=== PATIENT | female | born 1945 | race Caucasian/White ===

== ENCOUNTER 2017-01-16 14:29 | Emergency (ER) | payer MEDICARE, BC ==
--- NOTE | 2017-01-16 14:55 | ER Document Report ---
ED Medical Screen (RME) - General Chief Complaint: High Blood Pressure Stated Complaint: BLOOD PRESSURE CONCERNS Mode of Arrival: Ambulatory Information source: Patient TRAVEL OUTSIDE OF THE [place] IN LAST 30 DAYS: No - HPI Onset: Other - 2 WEEKS? Onset/Duration: Gradual Quality of pain: Achy, Dull Associated Symptoms: Headache, Sweating. denies: Abdominal pain, Chills, Fever , Leg swelling, Nausea, Shortness of breath Exacerbated by: Denies Relieved by: Denies Similar symptoms previously: No Recently seen / treated by doctor: Yes - DR. CLAROS, REFERED TO E.D. - Related Data Smoking: Non-smoker Frequency of alcohol use: None Drug Abuse: None Allergies/Adverse Reactions: No Known Allergies Allergy (Verified 01/16/17 14:53) Past Medical History - General Information source: Patient - Social History Cigarette use (# per day): No Lives with: Spouse/Significant other Family history: Hypertension - Past Medical History Cardiac Medical History: Reports: Hx Hypertension Pulmonary Medical History: Reports: None EENT Medical History: Reports: None Neurological Medical History: Reports: None Endocrine Medical History: Reports: None Renal/ Medical History: Denies: Hx Peritoneal Dialysis Malignancy Medical History: Reports: None GI Medical History: Reports: None Musculoskeltal Medical History: Reports None Psychiatric Medical History: Reports: None Review of Systems - Review of Systems Constitutional: No symptoms reported EENT: No symptoms reported Cardiovascular: No symptoms reported Respiratory: No symptoms reported Neurological/Psychological: See HPI Physical Exam - Vital signs Vitals: Temp Pulse Resp BP Pulse Ox 97.9 F 67 16 160/87 H 95 01/16/17 14:35 01/16/17 14:35 01/16/17 14:35 01/16/17 14:35 01/16/17 14:35 Interpretation: Hypertensive. No: Tachycardic, Hypoxic, Tachypneic - HEENT Head: Normocephalic Eyes: Normal Ears: Normal Nasal: Normal Mouth/Lips: Normal Mucous membranes: Normal - Respiratory Respiratory status: No respiratory distress - Extremities General upper extremity: Normal inspection General lower extremity: Normal inspection. No: Tender, Edema - Skin Skin Temperature: Warm Skin Moisture: Dry Skin Color: Normal Skin Turgor: Elastic Course - Vital Signs Vital signs: Temp Pulse Resp BP Pulse Ox 97.9 F 67 16 160/87 H 95 01/16/17 14:35 01/16/17 14:35 01/16/17 14:35 01/16/17 14:35 01/16/17 14:35
[2017-01-16 16:22] VITALS: BP 161/97
--- NOTE | 2017-01-16 16:30 | ER Document Report ---
ED General - General Chief Complaint: High Blood Pressure Stated Complaint: BLOOD PRESSURE CONCERNS Time seen by provider: 16:00 Mode of Arrival: Ambulatory Information source: Patient Notes: 71-year-old female noted a systolic blood pressure of 2:15 when she checked it at home this morning. She contacted her physician and says she was instructed to come to emergency department to be checked. Patient has a long history of high blood pressure and records it mostly on a daily basis the number she provides with her show systolics ranging from proximal 160-210. The patient was seen at Dr. Claros's office yesterday and had her lisinopril increased to 20 mg twice a day from once a day and her Carvedilol all 3.125 mg increased from 1 twice a day to 2 twice a day. Patient is also on Lasix. Patient says she also has an ultrasound of her kidneys ordered for next week that Dr. Claros will follow up with. The patient denies fever, chills, nausea, vomiting, shortness breath, chest pain, abdominal pain, back pain, pain numbness weakness to extremities, or swelling to extremities. She reports feeling in her normal state of health recently. Physical Exam: General: Alert, appears well. HEENT: Normocephalic. Atraumatic. PERRLA. Extraocular movements intact. Discs sharp no papilledema sclerae anicteric Oropharynx clear. Neck: Supple. Non-tender. No JVD no carotid bruits Respiratory: No respiratory distress. Clear and equal breath sounds bilaterally. Cardiovascular: Regular rate and rhythm. PMI not displaced Abdominal: Normal Inspection. Soft, non-tender. No distension. Normal Bowel Sounds. Back: Non-tender. No deformity or step off. Extremities all warm to plus pulses no cyanosis no edema no Homans sign Neurological: Cranial nerves III-XII grossly intact bilaterally. Strength 5/5 throughout. Sensation intact to light touch. Normal cognition. AAOx4. Normal speech. Cerebellar function intact by finger-nose test bilaterally Psychological: Normal affect. Normal Mood. Skin: Warm. Dry. Normal color. TRAVEL OUTSIDE OF THE [place] IN LAST 30 DAYS: No - Related Data Allergies/Adverse Reactions: No Known Allergies Allergy (Verified 01/16/17 14:53) Past Medical History - General Information source: Patient - Social History Smoking Status: Never Smoker Cigarette use (# per day): No Frequency of alcohol use: None Drug Abuse: None Lives with: Spouse/Significant other Family History: Hypertension, Malignancy Patient has suicidal ideation: No Patient has homicidal ideation: No - Past Medical History Cardiac Medical History: Reports: Hx Hypertension Pulmonary Medical History: Reports: None EENT Medical History: Reports: None Neurological Medical History: Reports: None Endocrine Medical History: Reports: None Renal/ Medical History: Denies: Hx Peritoneal Dialysis Malignancy Medical History: Reports: None GI Medical History: Reports: None Musculoskeltal Medical History: Reports None Psychiatric Medical History: Reports: None Past Surgical History: Reports: Hx Orthopedic Surgery - Hip replacement Medical plates and screws in spine Review of Systems - Review of Systems Constitutional: No symptoms reported EENT: denies: Ear pain, Nose pain, Throat pain Cardiovascular: denies: Chest pain, Dyspnea, Syncope Respiratory: denies: Short of breath, Wheezing Gastrointestinal: denies: Abdominal pain, Diarrhea, Nausea, Vomiting Genitourinary: denies: Burning, Hematuria Female Genitourinary: Post menopausal Musculoskeletal: denies: Back pain, Leg swelling Skin: denies: Rash Hematologic/Lymphatic: denies: Swollen glands Neurological/Psychological: denies: Weakness, Numbness Physical Exam - Vital signs Vitals: Temp Pulse Resp BP Pulse Ox 97.9 F 67 16 160/87 H 95 01/16/17 14:35 01/16/17 14:35 01/16/17 14:35 01/16/17 14:35 01/16/17 14:35 Course - Re-evaluation Re-evalutation: 01/16/17 16:30 Recheck of patient's blood pressure is 161/97. She is asymptomatic here. She is recently had a medication adjustment is only on her second dose of the new higher dosage. I long discussion with patient and about concerns over high blood pressure is a long-term risk for heart problems stroke and renal failure and it appears that this is being closely followed by her primary care physician. I further discussed that we want to make adjustments and blood pressure medicines gradually so as not to correct thinks too quickly and that I believed we did not need to make any further changes or pursue any further workup in the emergency department but that continued outpatient follow-up with her physician would be the most reasonable course of action. They're very grateful for this information and agreeable to discharge and outpatient follow- up - Vital Signs Vital signs: Temp Pulse Resp BP Pulse Ox 97.9 F 66 16 161/97 H 98 01/16/17 14:38 01/16/17 16:03 01/16/17 14:38 01/16/17 16:03 01/16/17 16:03 - Diagnostic Test Radiology reviewed: Image reviewed, Reports reviewed Discharge - Discharge Clinical Impression: Hypertension Qualifiers: Hypertension type: essential hypertension Qualified Code(s): I10 - Essential ( primary) hypertension Condition: Stable Disposition: HOME, SELF-CARE Instructions: High Blood Pressure, Requiring Treatment ([facility]) Referrals: JAYY CLAROS MD [Primary Care Provider] - Follow up as needed
--- NOTE | 2017-01-17 08:04 | EKG REPORT ---
SEVERITY:- BORDERLINE ECG - SINUS RHYTHM NONSPECIFIC ST-T CHANGES LATERAL LEADS : Confirmed by: Angelo Eastman MD 17-Jan-2017 08:04:13
== END 2017-01-16 16:53 | disposition home or self-care (01) ==
LOC: ER 14:29
DX: I10 Essential (primary) hypertension (principal)
CPT/HCPCS: 71020; 93005; 93010; 99283

== ENCOUNTER → 2018-01-14 | Outpatient (CLI) | payer MEDICARE, BC ==
--- NOTE | 2018-01-15 12:06 | RADIOLOGY REPORT (SQ) ---
EXAM DESCRIPTION: MRI LT LOWER JOINT WITHOUT COMPLETED DATE/TIME: 01/14/2018 7:49 pm REASON FOR STUDY: OSTEOPHYTE, LEFT ANKLE M25.772 OSTEOPHYTE, LEFT ANKLE COMPARISON: None. TECHNIQUE: Left ankle images acquired and stored on PACS. Multiplanar images include fat sensitive s equences as T1, fluid sensitive sequences as FST2/STIR, cartilage sensitive sequences as FSPD, and gr adient echo sequences. LIMITATIONS: None. FINDINGS: BONE MARROW: No alteration of signal to suggest marrow replacement or edema. No occult fra cture. No large osteophytes. EFFUSIONS: No subtalar or tibiotalar effusions. No loose bodies. OSSEOUS ARTICULATIONS: Normal tibiotalar, subtalar, talonavicular and calcaneocuboid joints. TALAR DOME AND TIBIAL PLAFOND: Normal cartilage. No osteochondral defect. ACHILLES TENDON: A 7 cm long segment of high-grade Achilles tendon tear is present, from the musculot endinous junction down to the calcaneal attachment. There are few intact fibers along the ventral ed ge of the tendon. These changes are best shown on sagittal STIR image 9 and coronal images 22-24. TIBIALIS ANTERIOR TENDON: Intact without edema at the 1st MT attachment. TIBIALIS POSTERIOR TENDON: Normal morphology and no edema at the navicular attachment. No tendon andrade th fluid. FLEXOR HALLUCIS LONGUS AND FLEXOR DIGITORUM TENDONS: Normal morphology and no tendon sheath fluid. No edema of the os trigonum. PERONEUS LONGUS AND BREVIS TENDON: Normal morphology and no tendon sheath fluid. No subluxation. ATFL, CFL, PTFL: Intact. No thickening or signal alteration. No oksana-ligamentous fluid. DELTOID LIGAMENT: Visualized components intact. TARSAL TUNNEL: No masses. No muscle atrophy. SINUS TARSI: No fluid. No reactive marrow edema or erosions. PLANTAR FASCIA: No signal alteration or tear. Small plantar calcaneal spur. ADJACENT SOFT TISSUES: Mild subcutaneous edema at the ankle OTHER: No other significant finding. IMPRESSION: 7 cm long segment of high-grade partial thickness tear of the Achilles tendon with few i ntact fibers along the ventral surface of the tendon TECHNICAL DOCUMENTATION: JOB ID: [id number] [employer]- All Rights Reserved Reading location - IP/workstation name: [email or web address] [email or web address]
== END ==
LOC: RAD 18:23
PROVIDERS: ATTEND Physician Assistant
DX: M25.572 Pain in left ankle and joints of left foot (principal)

== ENCOUNTER → 2018-03-04 | Outpatient (CLI) | payer MEDICARE, BC ==
--- NOTE | 2018-03-05 11:08 | RADIOLOGY REPORT (SQ) ---
EXAM DESCRIPTION: MRI LUMBAR SPINE WITHOUT COMPLETED DATE/TIME: 03/04/2018 5:25 pm REASON FOR STUDY: M54.16 RADICULOPATHY, LUMBAR REGION M54.16 RADICULOPATHY, LUMBAR REGION COMPARISON: None. TECHNIQUE: Sagittal and Axial imaging includes T1, T2, STIR and gradient echo sequences. Coronal T2/ HASTE imaging. LIMITATIONS: None. FINDINGS: VISUALIZED UPPER ABDOMEN: 2.3 x 1.6 cm mass versus hemorrhagic cyst right mid-pole kidney. Renal ultrasound recommended for followup. SEGMENTATION: No transitional anatomy. The lowest well-developed disc space is labeled L5-S1. ALIGNMENT: Anatomic. VERTEBRAE: Intact. BONE MARROW: Mild fatty reactive vertebral body endplate changes at L3-4 and L4-5 DISC SIGNAL: Diffuse decreased T2 weighted intervertebral disc signal at the L3-4, L4-5, and L5-S1 le vels. POSTERIOR ELEMENTS: Old bilateral laminectomy at L4 HARDWARE: Bilateral transpedicular screws and dorsal fixation plates at L4 and L5. CORD AND CONUS: Normal in size and signal intensity. Conus at the L1 level. SOFT TISSUES: No aortic aneurysm seen. No bulky retroperitoneal adenopathy or mass. No paraspinal mas s or fluid. T12-L1: No central or foraminal stenosis L1-L2: Minimal posterior disc bulging is present. Mild bilateral facet and ligament hypertrophy. Brendan rderline central canal stenosis. Mild bile and inferior foraminal narrowing without exit nerve root impingement. L2-L3: Mild posterior diffuse disc bulge, bulky bilateral facet and ligament hypertrophy with calcifi cations/ ossification of the ligamentum flavum. Mild central canal stenosis. Mild bilateral inferio r foraminal narrowing without exiting L2 nerve root impingement. L3-L4: Moderate central canal stenosis results from broad diffuse posterior disc bulge and bony spurr ing with bulky bilateral facet and ligament hypertrophy. Partial effacement of the CSF around the momo mbar nerve roots on axial image 17. There is moderate bilateral foraminal narrowing from bulky facet arthropathy without definite exiting L3 nerve root impingement. L4-L5: Old bilateral L4 laminectomy. No central stenosis. There is mild bilateral foraminal narrowi ng without exiting L4 nerve root impingement. L5-S1: Minimal posterior disc bulging, mild bilateral facet and ligament hypertrophy. No central filomena nosis. Moderate right foraminal narrowing without definite exiting right L5 nerve root impingement. High-grade left L5-S1 foraminal narrowing with flattening of the left L5 nerve root in the neural fo ramen. SACRUM: Visualized upper sacrum intact. OTHER: No other significant findings. IMPRESSION: Bilateral significant neural foraminal narrowing left greater than right at L5-S1. Prior fusion at L4-5 without significant central or foraminal encroachment 2.3 x 1.6 cm mass versus hemorrhagic cyst right mid-pole kidney for which renal ultrasound is recomme nded for follow-up TECHNICAL DOCUMENTATION: JOB ID: [id number] [employer]- All Rights Reserved Reading location - IP/workstation name: [email or web address]
== END ==
LOC: RAD 17:04
PROVIDERS: ATTEND Physician Assistant
DX: M54.16 Radiculopathy, lumbar region (principal)
CPT/HCPCS: 72148

== ENCOUNTER → 2018-03-17 | Outpatient (CLI) | payer MEDICARE, BC ==
--- NOTE | 2018-03-17 15:59 | RADIOLOGY REPORT (SQ) ---
EXAM DESCRIPTION: U/S RETROPERITON LTD COMPLETED DATE/TIME: 03/17/2018 2:57 pm REASON FOR STUDY: CYST OF KIDNEY, ACQUIRED N28.1 CYST OF KIDNEY, ACQUIRED COMPARISON: MR L-spine 03/04/2018 TECHNIQUE: Dynamic and static grayscale images acquired of the kidneys and bladder and recorded on P ACS. Additional selected color Doppler and spectral images recorded. LIMITATIONS: None. FINDINGS: RIGHT KIDNEY: Normal size, 10.9 cm. Normal echogenicity. No solid masses. There is a 2.4 x 2 x 2.3 cm cyst. This does not appear to correspond to the lesion seen on the MRI. No hydro nephrosis. No calcifications. LEFT KIDNEY: Normal size, 10.6 cm. Normal echogenicity. No solid or suspicious masses. No hydr onephrosis. No calcifications. BLADDER: No masses. OTHER FINDINGS: No other significant finding. IMPRESSION: There is a small cyst on the upper pole the right kidney. This does not appear to corre spond to the area of concern from the MRI of 03/04/2018. Consider CT with contrast for further evalua tion if clinically indicated. TECHNICAL DOCUMENTATION: JOB ID: [id number] [employer]- All Rights Reserved Reading location - IP/workstation name: [email or web address]
== END ==
LOC: RAD 14:30
PROVIDERS: ATTEND Physician Assistant
DX: N28.1 Cyst of kidney, acquired (principal)
CPT/HCPCS: 76775

== ENCOUNTER → 2018-04-14 | Outpatient (CLI) | payer MEDICARE, BC ==
--- NOTE | 2018-04-14 14:55 | RADIOLOGY REPORT (SQ) ---
EXAM DESCRIPTION: CT ABD/PELVIS WITH IV ONLY COMPLETED DATE/TIME: 04/14/2018 2:22 pm REASON FOR STUDY: CYST OF KIDNEY (N28.1) N28.1 CYST OF KIDNEY, ACQUIRED COMPARISON: MRI of the lumbar spine dated 03/04/2018 and renal ultrasound dated 03/17/2018 TECHNIQUE: CT scan of the abdomen and pelvis performed using helical scanning technique with dynamic intravenous contrast injection. No oral contrast. Images reviewed with lung, soft tissue, and bone windows. Reconstructed coronal and sagittal MPR images reviewed. Delayed images for evaluation of the urinary system also acquired. All images stored on PACS. All CT scanners at this facility use dose modulation, iterative reconstruction, and/or weight based d osing when appropriate to reduce radiation dose to as low as reasonably achievable (ALARA). [facility]: Dose Right [facility]: CareDose [facility]: Dose Right [facility]: Teradose 4D [facility]: [employer] CONTRAST TYPE AND DOSE: contrast/concentration: Isovue 370.00 mg/ml; Total Contrast Delivered: 100.0 ml; Total Saline Delivered: 72.0 ml RENAL FUNCTION: Creatinine 0.8 RADIATION DOSE: CT Rad equipment meets quality standard of care and radiation dose reduction techniq ues were employed. CTDIvol: 23.3 - 25.4 mGy. DLP: 2613 mGy-cm.. LIMITATIONS: Pelvic images are limited due to artifact related to bilateral hip prostheses. Abdomin al images are limited somewhat due to artifact related to orthopedic hardware in the lumbar spine. FINDINGS: LOWER CHEST: No significant findings. No nodules or infiltrates. LIVER: Normal size. No masses. No dilated ducts. SPLEEN: Normal size. No focal lesions. PANCREAS: No masses. No significant calcifications. No adjacent inflammation or peripancreatic fluid collections. Pancreatic duct not dilated. GALLBLADDER: No identified stones by CT criteria. No inflammatory changes to suggest cholecystitis. ADRENAL GLANDS: No significant masses or asymmetry. RIGHT KIDNEY AND URETER: A small renal mass is identified adjacent to the renal hilum medially measur ing 2.1 x 1.4 cm in diameter which correlates with the findings on the MRI of the lumbar spine. The appearance is suspicious for a renal neoplastic. A dedicated MRI of the abdomen may be of value for further evaluation. No significant calcifications. No hydronephrosis or hydroureter. LEFT KIDNEY AND URETER: No solid masses. No significant calcifications. No hydronephrosis or hydr oureter. AORTA AND VESSELS: No aneurysm. No dissection. Renal arteries, SMA, celiac without stenosis. RETROPERITONEUM: No retroperitoneal adenopathy, hemorrhage or masses. BOWEL AND PERITONEAL CAVITY: No masses or inflammatory changes. No free fluid or peritoneal masses. APPENDIX: Normal. PELVIS: A 2.8 cm in diameter cystic structure is identified in the right pelvis presumably ovarian in etiology. Followup recommendations are as noted below. No free fluid. Bladder is not well evaluat ed due to artifact related to the bilateral hip prostheses. ABDOMINAL WALL: No masses. Small umbilical hernia is identified containing fat BONES: Mild lumbar scoliosis convex to the left is identified with associated degenerative changes. Postsurgical changes are identified with orthopedic hardware in the lower lumbar spine OTHER: No other significant finding. IMPRESSION: Small right renal mass as noted above. The appearance is suspicious for neoplastic proc ess. A dedicated MRI of the abdomen may be of value for further evaluation. Other findings as noted above COMMENT: Followup of asymptomatic adnexal cysts found on CT or MRI in postmenopausal patients Early postmenopausal (50-55 yo) *Benign cyst ?3 cm: No followup *Benign cyst >3 and ?5 cm: US followup at 6-12 months *Benign cyst >5 cm: US *Probably benign cyst ?3 cm: No followup *Probably benign cyst > 3 cm: US *Other imaging features, probably diagnostic: manage as appropriate for diagnosis *Other imaging features, not specific: US Late postmenopausal (>55 yo) *Benign cyst ? 3 cm: No followup *Benign cyst > 3 cm: US *Probably benign cyst ? 1 cm: No followup *Probably benign cyst > 1 cm: US *Other imaging features: same as for early postmenopausal patient Note: If cyst is clinically symptomatic or otherwise concerning, other followup may be necessary. Menopause is considered age 50 by radiologist unless date of last period is known. Based on Managing Incidental Findings on Abdominal and Pelvic CT and MRI, Part 1: White Paper of the ACR Incidental Fi ndings Committee II on Adnexal Findings J Am Elva Radiol 2013;10:675-681. TECHNICAL DOCUMENTATION: JOB ID: [id number] Quality ID # 436: Final reports with documentation of one or more dose reduction techniques (e.g., Au tomated exposure control, adjustment of the mA and/or kV according to patient size, use of iterative reconstruction technique) 2010 [employer]- All Rights Reserved Reading location - IP/workstation name: [email or web address]
== END ==
LOC: RAD 13:39
PROVIDERS: ATTEND Physician Assistant
DX: N28.1 Cyst of kidney, acquired (principal); K42.9 Umbilical hernia without obstruction or gangrene
CPT/HCPCS: 74177; 82565

== ENCOUNTER → 2018-04-19 | Outpatient (CLI) | payer MEDICARE, BC ==
--- NOTE | 2018-04-19 14:07 | RADIOLOGY REPORT (SQ) ---
EXAM DESCRIPTION: MRI ABDOMEN COMBO COMPLETED DATE/TIME: 04/19/2018 10:55 am REASON FOR STUDY: AQUIRED CYST OF KIDNEY R10.9 UNSPECIFIED ABDOMINAL PAIN COMPARISON: MRI lumbar spine 03/12/2018 Renal ultrasound 03/17/2018 CT abdomen pelvis 04/14/2018 TECHNIQUE: Multiplanar multisequence imaging performed without and with contrast including sagittal, axial and coronal T2, axial T1, axial gradient fat sat T1, axial, sagittal and coronal fat sat T1 po st contrast. CONTRAST TYPE AND DOSE: 20 mL Prohance. RENAL FUNCTION: GFR > 60. LIMITATIONS: None. FINDINGS: In the right mid-pole kidney posterior aspect, a mass is present with avid gadolinium enha ncement, worrisome for renal neoplasm. This measures 3 cm transverse by 2 cm craniocaudad by 1.4 cm AP, and is best shown on coronal T1 image 20 and axial image 72. This correlates with the findings o n the original MRI lumbar spine 03/04/2016, correlates with the enhancing nodule of concern on CT abdo men pelvis 04/14/2018. Remainder of the right kidney demonstrates no other significant findings. No hydronephrosis. Normal right renal vein and renal artery flow. No adenopathy in the right retroperitoneum. LIVER: Normal size. No masses. No dilated ducts. CBD normal. SPLEEN: Normal size. No focal lesions. PANCREAS: No masses. No adjacent inflammation or peripancreatic fluid collections. Pancreatic duct no t dilated. GALLBLADDER: No masses. No stones. No gallbladder wall thickening or pericholecystic fluid. ADRENAL GLANDS: No significant masses or asymmetry. RIGHT KIDNEY AND URETER: As above LEFT KIDNEY AND URETER: No masses. No hydronephrosis. AORTA AND VESSELS: No aneurysm. No dissection. Renal arteries, SMA, celiac without stenosis. RETROPERITONEUM: No retroperitoneal adenopathy, hemorrhage or masses. BOWEL: No visualized masses. No inflammation. No significant dilatation. ABDOMINAL WALL AND PERITONEUM: No hernias. No free fluid. BONES: Fusion hardware lumbar spine at the L4-5 level OTHER: No other significant finding. IMPRESSION: Right posterior midpole renal cortical mass worrisome for malignancy. TECHNICAL DOCUMENTATION: JOB ID: [id number] [employer]- All Rights Reserved Reading location - IP/workstation name: [email or web address]
== END ==
LOC: RAD 09:15
PROVIDERS: ATTEND Physician Assistant
DX: R10.9 Unspecified abdominal pain (principal)
CPT/HCPCS: 74183; A9576

== ENCOUNTER → 2018-10-03 | Outpatient (CLI) | payer MEDICARE, BC ==
--- NOTE | 2018-10-03 17:43 | RADIOLOGY REPORT (SQ) ---
EXAM DESCRIPTION: MRI ABDOMEN COMBO COMPLETED DATE/TIME: 10/03/2018 3:56 pm REASON FOR STUDY: OTHER SPECIFIED DISORDERS OF KIDNEY AND URETER N28.89 OTHER SPECIFIED DISORDERS O F KIDNEY AND URETER COMPARISON: CT 04/14/2018. MRI abdomen 04/19/2018. TECHNIQUE: Precontrast T1, T2, STIR, in and out of phase T1 sequences. Postcontrast T1-weighted seq uences. CONTRAST TYPE AND DOSE: 20 mL Dotarem. RENAL FUNCTION: GFR > 60. LIMITATIONS: None. FINDINGS: RIGHT KIDNEY: Mass at the posterior midpole close to the pelvis is once again demonstrated . 2.4 cm transverse dimension by just at 2 cm craniocaudal. Similar appearance compared to prior. Low signal T2 with apparent enhancement with the administration of gadolinium. Solitary lesion. No other developing right renal lesions or evidence of obstruction. LEFT KIDNEY: No solid masses. No hydronephrosis. OTHER SOLID ORGANS: No significant abnormality. VASCULAR STRUCTURES: No evidence of aortic aneurysm or dissection. Patent major arterial and venous structures including IVC and renal veins. RETROPERITONEUM, PERITONEUM: No gross retroperitoneal adenopathy detected. MARROW SIGNAL IN THE SPINE AND VISUALIZED PELVIS: Normal marrow signal. No marrow replacement. IMPRESSION: 1. Stable right renal mass. This looks like a soft tissue lesion, as before. Suspicious appearance but without gross progression on short interval followup. Located adjacent to the renal pelvis. No evidence of retroperitoneal adenopathy or venous clot. TECHNICAL DOCUMENTATION: JOB ID: [id number] [employer]- All Rights Reserved Reading location - IP/workstation name: [email or web address]
== END ==
LOC: RAD 14:45
PROVIDERS: ATTEND Urology
DX: N28.89 Other specified disorders of kidney and ureter (principal)
CPT/HCPCS: 82565; 74183; A9576

== ENCOUNTER → 2018-12-31 | Outpatient (CLI) | payer MEDICARE, BC ==
--- NOTE | 2018-12-31 15:23 | RADIOLOGY REPORT (SQ) ---
EXAM DESCRIPTION: MRI ABDOMEN COMBO COMPLETED DATE/TIME: 12/31/2018 2:46 pm REASON FOR STUDY: N28.89 OTHER SPECIFIED DISORDERS OF KIDNEY AND URETER N28.89 OTHER SPECIFIED DISO RDERS OF KIDNEY AND URETER COMPARISON: Lumbar spine MRI 03/04/2018 Renal ultrasound 03/17/2018 CT abdomen pelvis 04/14/2018 MRI abdomen 04/19/2018, 10/03/2018 TECHNIQUE: Multiplanar multisequence imaging performed without and with contrast including sagittal, axial and coronal T2, axial T1, axial gradient fat sat T1, axial, sagittal and coronal fat sat T1 po st contrast. CONTRAST TYPE AND DOSE: 20 mL Dotarem. RENAL FUNCTION: Not indicated. ACR Type II contrast agent associated with few, if any, unconfounded cases of NSF LIMITATIONS: None. FINDINGS: LIVER: Normal size. No masses. No dilated ducts. CBD normal. SPLEEN: Normal size. No focal lesions. PANCREAS: No masses. No adjacent inflammation or peripancreatic fluid collections. Pancreatic duct no t dilated. GALLBLADDER: No masses. No stones. No gallbladder wall thickening or pericholecystic fluid. ADRENAL GLANDS: No significant masses or asymmetry. RIGHT KIDNEY AND URETER: Stable 2.5 x 2 x 1.5 cm solid enhancing nodule along the right posterior mid pole renal cortex worrisome for small solid renal neoplasm. This is stable compared to studies datin g back to 2018. No right-sided hydronephrosis. LEFT KIDNEY AND URETER: No masses. No hydronephrosis. AORTA AND VESSELS: No aneurysm. No dissection. Renal arteries, SMA, celiac without stenosis. RETROPERITONEUM: No retroperitoneal adenopathy, hemorrhage or masses. BOWEL: Not well seen ABDOMINAL WALL AND PERITONEUM: No hernias. No free fluid. BONES: Fusion hardware at L4-5 OTHER: No other significant finding. IMPRESSION: Stable right posterior midpole 2.5 x 2 x 1.5 cm solid enhancing renal mass TECHNICAL DOCUMENTATION: JOB ID: [id number] [employer] All Rights Reserved Reading location - IP/workstation name: [email or web address]
== END ==
LOC: RAD 13:34
PROVIDERS: ATTEND Urology
DX: N28.89 Other specified disorders of kidney and ureter (principal)
CPT/HCPCS: 74183; A9576

== ENCOUNTER → 2019-06-28 | Outpatient (CLI) | payer MEDICARE, BC ==
--- NOTE | 2019-06-28 13:11 | RADIOLOGY REPORT (SQ) ---
EXAM DESCRIPTION: MRI ABDOMEN COMBO COMPLETED DATE/TIME: 06/28/2019 11:26 am REASON FOR STUDY: RENAL MASS RIGHT N28.89 OTHER SPECIFIED DISORDERS OF KIDNEY AND URETER COMPARISON: 03/29/2019 TECHNIQUE: Multiplanar multisequence imaging performed without and with contrast including sagittal, axial and coronal T2, axial T1, axial gradient fat sat T1, axial, sagittal and coronal fat sat T1 po st contrast. CONTRAST TYPE AND DOSE: 20 mL Dotarem. RENAL FUNCTION: Not indicated. ACR Type II contrast agent associated with few, if any, unconfounded cases of NSF LIMITATIONS: Motion. FINDINGS: LIVER: Normal size. No masses. No dilated ducts. CBD normal. SPLEEN: Normal size. No focal lesions. PANCREAS: No masses. No adjacent inflammation or peripancreatic fluid collections. Pancreatic duct no t dilated. GALLBLADDER: No masses. No stones. No gallbladder wall thickening or pericholecystic fluid. ADRENAL GLANDS: No significant masses or asymmetry. RIGHT KIDNEY AND URETER: Lesion on the medial aspect posterior midpole 1.4 x 1.7 x 1.9 cm AP by trans verse by craniocaudal diameter, previously 1.5 x 2.0 x 2.0 cm. Intermediate low signal on T2. Simil ar to adjacent cortex on T1 pre and postcontrast. No new lesions are identified. LEFT KIDNEY AND URETER: No masses. No hydronephrosis. AORTA AND VESSELS: No aneurysm. RETROPERITONEUM: No retroperitoneal adenopathy, hemorrhage or masses. BOWEL: No visualized masses. No inflammation. No significant dilatation. ABDOMINAL WALL AND PERITONEUM: No hernias. No free fluid. BONES: No acute or significant findings. OTHER: No other significant finding. IMPRESSION: Solid lesion right kidney measures slightly smaller on the current study. TECHNICAL DOCUMENTATION: JOB ID: [id number] [employer]- All Rights Reserved Reading location - IP/workstation name: [email or web address]
== END ==
LOC: RAD 10:28
PROVIDERS: ATTEND Urology
DX: N28.89 Other specified disorders of kidney and ureter (principal)
CPT/HCPCS: 82565; 74183; A9576

== ENCOUNTER 2019-12-09 06:46 | Observation (INO) | payer MEDICARE, BC ==
[2019-12-09] MEDS ORDERED: IPRATROPIUM/ALBUTEROL 0.5-2.5 MG/3 ML AMPUL NEB ONE (07:05)
[2019-12-09 07:26] LABS: ABSOLUTE EOSINOPHILS # (AUTO) 1.1 10^3/uL (0.0-0.6); ABSOLUTE LYMPHOCYTES (AUTO) 3.4 10^3/uL (0.5-4.7); ABSOLUTE MONOCYTES (AUTO) 0.7 10^3/uL (0.1-1.4); ABSOLUTE NEUT (AUTO) 5.2 10^3/uL (1.7-8.2); BASOPHILS % (AUTO) 0.4 % (0-2); EOSINOPHILS % (AUTO) 10.3 % (0-6); HEMATOCRIT 40.2 % (36.0-47.0); HEMOGLOBIN 13.4 g/dL (12.0-15.5); LYMPHOCYTES % (AUTO) 32.2 % (13-45); MEAN CORPUSCULAR HEMOGLOBIN 31.6 pg (27.0-33.4); MEAN CORPUSCULAR HGB CONC 33.4 g/dL (32.0-36.0); MEAN CORPUSCULAR VOLUME 95 fl (80-97); MONOCYTES % (AUTO) 7.2 % (3-13); PLATELET COUNT 369 10^3/uL (150-450); RED BLOOD COUNT 4.25 10^6/uL (3.72-5.28); RED CELL DISTRIBUTION WIDTH 14.9 % (11.5-14.0); SEGMENTED NEUTROPHILS % (AUTO) 49.9 % (42-78); TOTAL CELLS COUNTED % (AUTO) 100 %; WHITE BLOOD COUNT 10.5 10^3/uL (4.0-10.5)
[2019-12-09 07:32] LABS: APPEARANCE,URINE SLIGHTLY-CLOUDY; BILIRUBIN,URINE NEGATIVE (NEGATIVE); COLOR,URINE YELLOW; GLUCOSE, URINE >=500 mg/dL (NEGATIVE); KETONES,URINE NEGATIVE (NEGATIVE); LEUKOCYTE ESTERASE,URINE NEGATIVE (NEGATIVE); NITRITE,URINE NEGATIVE (NEGATIVE); PROTEIN,URINE 100 mg/dL (NEGATIVE); URINE SPECIFIC GRAVITY 1.016; UROBILINOGEN,URINE NEGATIVE mg/dL (<2.0)
--- NOTE | 2019-12-09 07:39 | RADIOLOGY REPORT (SQ) ---
EXAM DESCRIPTION: XR CHEST 1 VIEW COMPLETED DATE/TME: 12/09/2019 07:03 CLINICAL HISTORY: 74 years Female, Progressive shortness of breath with dry cough COMPARISON:May 13 2018 NUMBER OF VIEWS/TECHNIQUE: 1/AP FINDINGS: Increased lung volume, clear parenchyma, normal cardiac silhouette, and intact bony thorax.Atherosclerotic vascular disease. IMPRESSION: No acute cardiopulmonary findings.
[2019-12-09 07:40] LABS: A TYPE INFLUENZA AG NEGATIVE (NEGATIVE)
[2019-12-09 07:41] LABS: B INFLUENZA AG NEGATIVE (NEGATIVE)
[2019-12-09 07:48] LABS: ALBUMIN 4.4 g/dL (3.5-5.0); ALKALINE PHOSPHATASE 129 U/L (38-126); ANION GAP 14 (5-19); ASPARTATE AMINO TRANSFERASE 41 U/L (14-36); BILIRUBIN,DIRECT 0.3 mg/dL (0.0-0.4); BILIRUBIN,TOTAL 0.5 mg/dL (0.2-1.3); BLOOD UREA NITROGEN 17 mg/dL (7-20); CALCIUM 9.6 mg/dL (8.4-10.2); CARBON DIOXIDE 29 mmol/L (22-30); CHLORIDE 96 mmol/L (98-107); CREATINE KINASE 531 U/L (30-135); GLUCOSE 274 mg/dL (75-110); TOTAL PROTEIN 7.6 g/dL (6.3-8.2)
[2019-12-09] MEDS: MAGNESIUM SULFATE/D5W 1 GM/100 ML RTUPB IV SCH ×2 (07:53→08:12)
--- NOTE | 2019-12-09 07:53 | ER Document Report ---
Entered by ALF SOLIS SCRIBE 12/09/19 0656 Acting as scribe for:HOLLIS DASILVA MD ED Respiratory Problem - General Chief Complaint: Respiratory Distress Stated Complaint: RESPIRATORY Time Seen by Provider: 12/09/19 06:53 Primary Care Provider: [facility] [NO LOCAL MD] - Follow up as needed Mode of Arrival: Ambulatory Information source: Patient Notes: This 74-year-old female patient presents to the emergency department today with complaints of a 3-day history of a non-productive cough with associated shortness of breath. Patient states her shortness of breath and her cough have become worse since onset. Patient states she is unable to bring anything up with her cough and she feels like if she could she would feel better. Patient takes 20mg of Lasix daily and she hasn't missed any dosages of her medication. Patient denies any chest pain or fevers. The patient has never been a smoker, [place] and her father was a heavy smoker in the home. TRAVEL OUTSIDE OF THE [place] IN LAST 30 DAYS: No - Related Data Allergies/Adverse Reactions: No Known Allergies Allergy (Verified 12/09/19 07:16) Past Medical History - General Information source: Patient - Social History Smoking Status: Former Smoker Cigarette use (# per day): No Frequency of alcohol use: None Drug Abuse: None Lives with: Family Family History: Reviewed & Not Pertinent, Hypertension, Malignancy - Past Medical History Cardiac Medical History: Reports: Hx Hypertension Musculoskeletal Medical History: Reports Hx Arthritis Past Surgical History: Reports: Hx Orthopedic Surgery - Hip replacement Medical plates and screws in spine - Immunizations Hx Diphtheria, Pertussis, Tetanus Vaccination: Yes Review of Systems - Review of Systems Constitutional: denies: Fever EENT: No symptoms reported Cardiovascular: denies: Chest pain Respiratory: See HPI, Cough, Short of breath. denies: Sputum Gastrointestinal: No symptoms reported Genitourinary: No symptoms reported Female Genitourinary: No symptoms reported Musculoskeletal: No symptoms reported Skin: No symptoms reported Hematologic/Lymphatic: No symptoms reported Neurological/Psychological: No symptoms reported -: Yes All other systems reviewed and negative Physical Exam - Vital signs Vitals: Resp Pulse Ox 23 H 92 12/09/19 06:46 12/09/19 06:46 - Notes Notes: Physical Exam: General: Alert, obese, appears dyspneic. HEENT: Normocephalic. Atraumatic. PERRL. Extraocular movements intact. Oropharynx clear. Neck: Supple. Non-tender. Respiratory: Moderate respiratory distress. Currently on BiPAP. Bibasilar rales with wheezing. Cardiovascular: Regular rate and rhythm. Abdominal: Obese. Non-tender. No distension. Normal Bowel Sounds. Back: No gross abnormalities. Extremities: Moves all four extremities. Upper extremities: Normal inspection. Normal ROM. Lower extremities: 1-2+ pitting edema bilaterally. Neurological: Normal cognition. AAOx4. Normal speech. Psychological: Normal affect. Normal Mood. Skin: Warm. Dry. Normal color. Course - Re-evaluation Re-evalutation: 12/09/19 09:14 Patient reports her breathing is much better on BiPAP, she has had 2 g magnesium, Solu-Medrol from EMS, has had several breathing treatments. She still has diffuse expiratory expiratory wheezes and rhonchi when she coughs. - Vital Signs Vital signs: Temp Pulse Resp BP Pulse Ox 15 175/160 H 99 12/09/19 07:16 12/09/19 07:16 12/09/19 07:16 - Laboratory Result Diagrams: 12/09/19 07:06 12/09/19 07:06 Laboratory results interpreted by me: 12/09/19 12/09/19 12/09/19 07:06 07:06 07:06 RDW 14.9 H Eos % (Auto) 10.3 H Absolute Eos (auto) 1.1 H Chloride 96 L Glucose 274 H AST 41 H Alkaline Phosphatase 129 H Creatine Kinase 531 H Urine Protein 100 H Urine Glucose (UA) >=500 H Urine Ascorbic Acid 40 H - Diagnostic Test Radiology reviewed: Image reviewed, Reports reviewed - Chest x-ray is unremarkable - EKG Interpretation by Wy EKG shows normal: Sinus rhythm, Spearman, Intervals, QRS Complexes, ST-T Waves Rate: Normal - 97 Rhythm: NSR Spearman/QRS: Left axis deviation, IVCD Voltage: Consistant with LVH When compared to previous EKG there are: Changes noted - Compared to January 16, 2017 - Consults Norma Vasquez NP Time consulted: 09:10 Consulted provider: will come to ER Critical Care Note - Critical Care Note Total time excluding time spent on procedures (mins): 40 Discharge - Discharge Clinical Impression: Bronchitis, acute, with bronchospasm, Eosinophilia, Hypoxia Condition: Good Disposition: ADMITTED INPATIENT Admitting Provider: Lesli (Hospitalist) - Norma Vasquez NP is seeing the patient Unit Admitted: [facility] Referrals: [facility] [NO LOCAL MD] - Follow up as needed I personally performed the services described in the documentation, reviewed and edited the documentation which was dictated to the scribe in my presence, and it accurately records my words and actions.
[2019-12-09 07:58] LABS: CREATINE KINASE MB 3.43 ng/mL (<4.55); TROPONIN I 0.023 ng/mL
[2019-12-09] MEDS ORDERED: NORMAL SALINE 1000 ML 1,000 ML IV PRN (10:07)
[2019-12-09] MEDS ORDERED: ONDANSETRON HCL INJ/PF 4 MG/2 ML SDV IV PRN (10:07)
[2019-12-09] MEDS ORDERED: MAG HYDROX/AL HYDROX/SIMETH SUSP 30 ML UDCUP PO PRN (10:07)
[2019-12-09] MEDS ORDERED: ALBUTEROL SULFATE 0.083% NEB 2.5 MG/3 ML AMPUL NEB PRN (10:07)
[2019-12-09] MEDS ORDERED: ACETAMINOPHEN 325 MG TABLET PO PRN (10:07)
--- NOTE | 2019-12-09 10:23 | PDOC H&P ---
History of Present Illness Admission Date/PCP: 12/09/19 09:50 JAYY CLAROS MD Patient complains of: shortness of breath History of Present Illness: BRAD LÓPEZ is a 74 year old female with a past medical history of chronic sinusitis, asthma, renal carcinoma (received twice yearly MRIs for monitoring), and obesity who presented to the emergency department with a complaint of 2 to 3-days of progressively worsening dyspnea and wheezing unresponsive to home nebulizer treatments. Patient reports that she has never been admitted for asthma in the past. She states it has been "quite some time" since her last asthma exacerbation and does not require daily maintenance medications. Per EMS, the patient was found to have oxygen saturations of 82% on room air. She received Solu-Medrol, nebulizer treatments, and placed on BiPAP. Further evaluation in the emergency department revealed tachypnea, mild hypertension, normal WBCs with eosinophilia, chemistry revealed hyperglycemia (likely secondary to Solu-Medrol as her A1c was 5.6%) and an elevated CK to 531. Influenza was negative and chest x-ray clear. Patient was provided IV magnesium and additional nebulizer treatments. She has been referred to the hospitalist service for admission and management of the above-stated complaints findings. Past Medical History Cardiac Medical History: Reports: Hypertension Pulmonary Medical History: Reports: Asthma EENT Medical History: Reports: Nose - Chronic sinusitis Neurological Medical History: Reports: None Endocrine Medical History: Reports: Obesity Malignancy Medical History: Reports: Renal (Kidney) Cancer GI Medical History: Reports: None Musculoskeltal Medical History: Reports: Arthritis Skin Medical History: Reports: None Psychiatric Medical History: Reports: None Traumatic Medical History: Reports: None Hematology: Reports: None Infectious Medical History: Reports: None Past Surgical History Past Surgical History: Reports: Orthopedic Surgery - Hip replacement Medical plates and screws in spine Social History Information Source: Patient Lives with: Family Smoking Status: Never Smoker Electronic Cigarette use?: No Frequency of Alcohol Use: None Hx Recreational Drug Use: No - Advance Directive Resuscitation Status: Full Code Family History Family History: Reviewed & Not Pertinent, COPD, Hypertension, Malignancy Parental Family History Reviewed: Yes Children Family History Reviewed: Yes Sibling(s) Family History Reviewed.: Yes Medication/Allergy Allergies/Adverse Reactions: No Known Allergies Allergy (Verified 12/09/19 07:16) Review of Systems Constitutional: ABSENT: chills, fever(s), headache(s), weight gain, weight loss Eyes: ABSENT: visual disturbances Ears: ABSENT: hearing changes Cardiovascular: ABSENT: chest pain, dyspnea on exertion, edema, orthropnea, palpitations Respiratory: PRESENT: dyspnea. ABSENT: cough, hemoptysis Gastrointestinal: ABSENT: abdominal pain, constipation, diarrhea, hematemesis, hematochezia, nausea, vomiting Genitourinary: ABSENT: dysuria, hematuria Musculoskeletal: ABSENT: joint swelling Integumentary: ABSENT: rash, wounds Neurological: ABSENT: abnormal gait, abnormal speech, confusion, dizziness, focal weakness, syncope Psychiatric: ABSENT: anxiety, depression, homidical ideation, suicidal ideation Endocrine: ABSENT: cold intolerance, heat intolerance, polydipsia, polyuria Hematologic/Lymphatic: ABSENT: easy bleeding, easy bruising Physical Exam Vital Signs: Temp Pulse Resp BP Pulse Ox 22 H 143/83 H 99 12/09/19 09:46 12/09/19 09:46 12/09/19 09:46 Intake & Output 12/08/19 12/09/19 12/10/19 06:59 06:59 06:59 Intake Total 132 Balance 132 Weight 108 kg General appearance: PRESENT: cooperative - Pleasant, mild distress, obese, well- developed, well-nourished Head exam: PRESENT: atraumatic, normocephalic Eye exam: PRESENT: conjunctiva pink, EOMI, PERRLA. ABSENT: scleral icterus Mouth exam: PRESENT: moist, tongue midline Respiratory exam: PRESENT: rhonchi, symmetrical, tachypnea, wheezes, other - Currently on BiPAP. ABSENT: rales Cardiovascular exam: PRESENT: RRR, +S1, +S2. ABSENT: diastolic murmur, rubs, systolic murmur Pulses: PRESENT: normal dorsalis pedis pul Vascular exam: PRESENT: normal capillary refill GI/Abdominal exam: PRESENT: normal bowel sounds, soft. ABSENT: distended, guarding, mass, organolmegaly, rebound, tenderness Rectal exam: PRESENT: deferred Extremities exam: PRESENT: full ROM. ABSENT: calf tenderness, clubbing, pedal edema Neurological exam: PRESENT: alert, awake, oriented to person, oriented to place, oriented to time, oriented to situation, CN II-XII grossly intact. ABSENT: motor sensory deficit Psychiatric exam: PRESENT: appropriate affect, normal mood. ABSENT: homicidal ideation, suicidal ideation Skin exam: PRESENT: dry, intact, warm. ABSENT: cyanosis, rash Results Laboratory Results: 12/09/19 07:06 12/09/19 07:06 12/09/19 12/09/19 12/09/19 07:06 07:06 07:06 WBC 10.5 RBC 4.25 Hgb 13.4 Hct 40.2 MCV 95 MCH 31.6 MCHC 33.4 RDW 14.9 H Plt Count 369 Seg Neutrophils % 49.9 Sodium 138.5 Potassium 4.0 Chloride 96 L Carbon Dioxide 29 Anion Gap 14 BUN 17 Creatinine 0.87 Est GFR ( Amer) > 60 Glucose 274 H Calcium 9.6 Total Bilirubin 0.5 AST 41 H Alkaline Phosphatase 129 H Total Protein 7.6 Albumin 4.4 Urine Color YELLOW Urine Appearance SLIGHTLY-CLOUDY Urine pH 5.0 Ur Specific [place] 1.016 Urine Protein 100 H Urine Glucose (UA) >=500 H Urine Ketones NEGATIVE Urine Blood NEGATIVE Urine Nitrite NEGATIVE Ur Leukocyte Esterase NEGATIVE Urine WBC (Auto) 2 Urine RBC (Auto) 2 12/09/19 12/09/19 07:06 07:06 Creatine Kinase 531 H CK-MB (CK-2) 3.43 Troponin I 0.023 NT-Pro-B Natriuret Pep 84 Impressions: Chest X-Ray 12/09/19 07:03 IMPRESSION: No acute cardiopulmonary findings. Assessment and Plan - Diagnosis (1) Acute respiratory failure with hypoxia Is this a current diagnosis for this admission?: Yes Plan: Secondary to asthma exacerbation. Patient is admitted to the medical floor on continuous cardiac telemetry. Will provide supplemental oxygen and BiPAP as needed to maintain saturations greater than 89%. Start on scheduled and as needed nebulizer treatments. Provide IV Solu-Medrol. She is placed on Flonase and Zyrtec Patient specifically denies fever, cough, known sick contacts. She reports that she has been primarily homebound and has been compliant with social distancing. No concern for COVID19. (2) Asthma exacerbation Qualifiers: Asthma severity: mild Asthma persistence: intermittent Qualified Code(s): J45.21 - Mild intermittent asthma with (acute) exacerbation Is this a current diagnosis for this admission?: Yes Plan: Management as above. Patient reports is likely related to seasonal allergies and sinusitis. She notes that she has had difficulty with allergies related to pine tree pollen this season. (3) Chronic sinusitis Qualifiers: Sinusitis location: unspecified location Qualified Code(s): J32.9 - Chronic sinusitis, unspecified Is this a current diagnosis for this admission?: Yes Plan: Flonase Zyrtec No indications for antibiotic therapy at this time. (4) Eosinophilia Is this a current diagnosis for this admission?: Yes Plan: As above. Follow up CBC (5) Hyperglycemia Is this a current diagnosis for this admission?: Yes Plan: A1C 5.6% Elevated glucose is secondary to steroid use. - Time Time Spent with patient: 35 or more minutes Medications reviewed and adjusted accordingly: Yes Anticipated discharge: Home Within: within 48 hours
[2019-12-09] MEDS: IPRATROPIUM/ALBUTEROL 0.5-2.5 MG/3 ML AMPUL NEB SCH ×2 (14:03→20:10)
[2019-12-09] MEDS: CETIRIZINE 10 MG TABLET PO SCH (14:45)
[2019-12-09] MEDS: HEPARIN SOD (PORCINE) 5,000 UNIT/ML 1 ML VIAL SUBCUT SCH ×2 (15:01→22:32)
[2019-12-09] MEDS: CLONIDINE HCL 0.1 MG TABLET PO SCH ×2 (15:01→22:33)
[2019-12-09] MEDS: METHYLPREDNISOLONE INJ 40 MG/1 ML SDV IV SCH ×2 (15:01→22:34)
[2019-12-09] MEDS ORDERED: HYDRALAZINE HCL INJ/PF 20 MG/1 ML SDV IV PRN (16:31)
[2019-12-09] MEDS: LISINOPRIL 10 MG TABLET PO SCH (17:54)
[2019-12-09] MEDS: HYDROCODONE/ACETAMINOPHEN 5-325 MG TABLET PO SCH (17:54)
[2019-12-09] MEDS: PANTOPRAZOLE SODIUM 40 MG TABLET.DR PO SCH (17:55)
[2019-12-09] MEDS ORDERED: (PENDING PHARMACY ID) (Lisinopril [Lisinopril] 20 MG) PO SCH (18:00)
[2019-12-09] MEDS: BENZONATATE 100 MG CAPSULE PO PRN (18:47)
[2019-12-09] MEDS ORDERED: PHENOL/SODIUM PHENOLATE 100 SPRAY/177 ML BOTTLE PO PRN (19:00)
--- NOTE | 2019-12-09 19:46 | EKG REPORT ---
SEVERITY:- ABNORMAL ECG - SINUS RHYTHM LVH WITH IVCD, LAD AND SECONDARY REPOL ABNRM [facility] : Confirmed by: Angelo Eastman MD 09-Dec-2019 19:45:52
[2019-12-09] MEDS: CARVEDILOL 12.5 MG TABLET PO SCH (22:34)
[2019-12-10] MEDS: IPRATROPIUM/ALBUTEROL 0.5-2.5 MG/3 ML AMPUL NEB SCH ×4 (01:58→20:07)
[2019-12-10] MEDS: HEPARIN SOD (PORCINE) 5,000 UNIT/ML 1 ML VIAL SUBCUT SCH ×3 (05:15→21:41)
[2019-12-10] MEDS: LISINOPRIL 10 MG TABLET PO SCH ×2 (05:15→18:12)
[2019-12-10] MEDS: BENZONATATE 100 MG CAPSULE PO PRN ×2 (05:15→18:13)
[2019-12-10] MEDS: METHYLPREDNISOLONE INJ 40 MG/1 ML SDV IV SCH ×3 (05:15→21:39)
[2019-12-10] MEDS: PANTOPRAZOLE SODIUM 40 MG TABLET.DR PO SCH ×2 (05:16→18:11)
[2019-12-10] MEDS: CLONIDINE HCL 0.1 MG TABLET PO SCH ×3 (05:16→21:40)
[2019-12-10 07:12] LABS: HEMATOCRIT 34.6 % (36.0-47.0); HEMOGLOBIN 11.7 g/dL (12.0-15.5); MEAN CORPUSCULAR HEMOGLOBIN 31.3 pg (27.0-33.4); MEAN CORPUSCULAR HGB CONC 33.8 g/dL (32.0-36.0); MEAN CORPUSCULAR VOLUME 92 fl (80-97); PLATELET COUNT 275 10^3/uL (150-450); RED BLOOD COUNT 3.74 10^6/uL (3.72-5.28); RED CELL DISTRIBUTION WIDTH 14.9 % (11.5-14.0); WHITE BLOOD COUNT 8.3 10^3/uL (4.0-10.5)
[2019-12-10 07:38] LABS: ANION GAP 10 (5-19); BLOOD UREA NITROGEN 13 mg/dL (7-20); CALCIUM 9.1 mg/dL (8.4-10.2); CARBON DIOXIDE 26 mmol/L (22-30); CHLORIDE 102 mmol/L (98-107); GLUCOSE 164 mg/dL (75-110); POTASSIUM 3.8 mmol/L (3.6-5.0)
[2019-12-10] MEDS: FLUTICASONE NASAL SPRAY 50 MCG/SPRY 120 SPRAY/16 GM NASL SCH (09:16)
[2019-12-10] MEDS: FUROSEMIDE 20 MG TABLET PO SCH (09:17)
[2019-12-10] MEDS: DOCUSATE SODIUM 100 MG CAPSULE PO SCH (09:17)
[2019-12-10] MEDS: HYDROCODONE/ACETAMINOPHEN 5-325 MG TABLET PO SCH ×2 (09:18→18:11)
[2019-12-10] MEDS: AMLODIPINE BESYLATE 5 MG TABLET PO SCH (09:18)
[2019-12-10] MEDS: CETIRIZINE 10 MG TABLET PO SCH (09:18)
[2019-12-10] MEDS: CARVEDILOL 12.5 MG TABLET PO SCH ×2 (09:19→21:40)
[2019-12-10] MEDS: PAROXETINE HCL 20 MG TABLET PO SCH (09:20)
--- NOTE | 2019-12-10 15:11 | PDOC PROGRESS REPORT ---
Subjective Progress Note for:: 12/10/19 Subjective:: BRAD LÓPEZ is a 74 year old female with a past medical history of chronic sinusitis, asthma, renal carcinoma (received twice yearly MRIs for monitoring), and obesity who was admitted 12/09/2019 with acute respiratory failure with hypoxia secondary to asthma exacerbation. Patient is seen on afternoon rounds. She was found resting in bed, comfortably, on room air. She is noted to have 2-3 word sentences, but is breathing comfortably when not speaking. She was able to ambulate 1 lap on the floor on room air and became slightly dizzy towards the end but maintain oxygen saturations greater than 92%. Overall, patient reports that she is feeling much better. She denies fever, chills, chest pain, palpitations, cough, abdominal pain, nausea vomiting and diarrhea. She has no other questions or concerns at this time. No concerns per nursing. Reason For Visit: ACUTE RESPIRATORY FAILURE HYPOXIA Physical Exam Vital Signs: Temp Pulse Resp BP Pulse Ox 98.5 F 83 16 155/83 H 94 12/10/19 11:29 12/10/19 13:24 12/10/19 13:24 12/10/19 11:29 12/10/19 13:24 Intake & Output 12/09/19 12/10/19 12/11/19 06:59 06:59 06:59 Intake Total 892 360 Balance 892 360 Weight 108 kg 107.5 kg General appearance: PRESENT: no acute distress, cooperative, obese, well- developed, well-nourished Head exam: PRESENT: atraumatic, normocephalic Eye exam: PRESENT: conjunctiva pink, EOMI, PERRLA. ABSENT: scleral icterus Ear exam: PRESENT: normal external ear exam Mouth exam: PRESENT: moist, tongue midline Respiratory exam: PRESENT: clear to auscultation devon, symmetrical, tachypnea, unlabored. ABSENT: rales, rhonchi, wheezes Cardiovascular exam: PRESENT: RRR, +S1, +S2. ABSENT: diastolic murmur, rubs, systolic murmur Vascular exam: PRESENT: normal capillary refill Extremities exam: PRESENT: full ROM. ABSENT: calf tenderness, clubbing, pedal edema Musculoskeletal exam: PRESENT: ambulatory Neurological exam: PRESENT: alert, awake, oriented to person, oriented to place, oriented to time, oriented to situation, CN II-XII grossly intact. ABSENT: motor sensory deficit Psychiatric exam: PRESENT: appropriate affect, normal mood. ABSENT: homicidal ideation, suicidal ideation Skin exam: PRESENT: dry, intact, warm. ABSENT: cyanosis, rash Results Laboratory Results: 12/10/19 06:12 12/10/19 06:12 12/10/19 12/10/19 06:12 06:12 WBC 8.3 RBC 3.74 Hgb 11.7 L Hct 34.6 L MCV 92 MCH 31.3 MCHC 33.8 RDW 14.9 H Plt Count 275 Sodium 138.2 Potassium 3.8 Chloride 102 Carbon Dioxide 26 Anion Gap 10 BUN 13 Creatinine 0.50 L Est GFR ( Amer) > 60 Glucose 164 H Calcium 9.1 12/09/19 12/09/19 07:06 07:06 Creatine Kinase 531 H CK-MB (CK-2) 3.43 Troponin I 0.023 NT-Pro-B Natriuret Pep 84 Impressions: Chest X-Ray 12/09/19 07:03 IMPRESSION: No acute cardiopulmonary findings. Assessment and Plan - Diagnosis (1) Acute respiratory failure with hypoxia Is this a current diagnosis for this admission?: Yes Plan: Resolved. Now maintains saturations while ambulatory on room air. Secondary to asthma exacerbation. Patient is admitted to the medical floor on continuous cardiac telemetry. Will provide supplemental oxygen and BiPAP as needed to maintain saturations greater than 89%. Start on scheduled and as needed nebulizer treatments. Provide IV Solu-Medrol; have begun weaning. Plan to transition to PO prednisone tomorrow. She is placed on Flonase and Zyrtec Patient specifically denies fever, cough, known sick contacts. She reports that she has been primarily homebound and has been compliant with social distancing. No concern for COVID19. (2) Asthma exacerbation Qualifiers: Asthma severity: mild Asthma persistence: intermittent Qualified Code(s): J45.21 - Mild intermittent asthma with (acute) exacerbation Is this a current diagnosis for this admission?: Yes Plan: Improved. Management as above. Patient reports is likely related to seasonal allergies and sinusitis. She notes that she has had difficulty with allergies related to pine tree pollen this season. (3) Chronic sinusitis Qualifiers: Sinusitis location: unspecified location Qualified Code(s): J32.9 - Chronic sinusitis, unspecified Is this a current diagnosis for this admission?: Yes Plan: Flonase Zyrtec No indications for antibiotic therapy at this time. (4) Eosinophilia Is this a current diagnosis for this admission?: Yes Plan: As above. Follow up CBC (5) Hyperglycemia Is this a current diagnosis for this admission?: Yes Plan: A1C 5.6% Elevated glucose is secondary to steroid use. - Time Time Spent with patient: 25-34 minutes Medications reviewed and adjusted accordingly: Yes Anticipated discharge: Home Within: within 24 hours
[2019-12-11] MEDS: IPRATROPIUM/ALBUTEROL 0.5-2.5 MG/3 ML AMPUL NEB SCH ×2 (01:33→08:28)
[2019-12-11] MEDS: HEPARIN SOD (PORCINE) 5,000 UNIT/ML 1 ML VIAL SUBCUT SCH (05:42)
[2019-12-11] MEDS: CLONIDINE HCL 0.1 MG TABLET PO SCH (05:42)
[2019-12-11] MEDS: METHYLPREDNISOLONE INJ 40 MG/1 ML SDV IV SCH (05:43)
[2019-12-11] MEDS: BENZONATATE 100 MG CAPSULE PO PRN (05:43)
[2019-12-11] MEDS: LISINOPRIL 10 MG TABLET PO SCH (05:43)
[2019-12-11] MEDS: PANTOPRAZOLE SODIUM 40 MG TABLET.DR PO SCH (05:43)
[2019-12-11 08:09] VITALS: BP 145/65
[2019-12-11] MEDS: HYDROCODONE/ACETAMINOPHEN 5-325 MG TABLET PO SCH (09:02)
[2019-12-11] MEDS: FUROSEMIDE 20 MG TABLET PO SCH (09:02)
[2019-12-11] MEDS: PAROXETINE HCL 20 MG TABLET PO SCH (09:03)
[2019-12-11] MEDS: DOCUSATE SODIUM 100 MG CAPSULE PO SCH (09:03)
[2019-12-11] MEDS: CARVEDILOL 12.5 MG TABLET PO SCH (09:03)
[2019-12-11] MEDS: CETIRIZINE 10 MG TABLET PO SCH (09:03)
[2019-12-11] MEDS: AMLODIPINE BESYLATE 5 MG TABLET PO SCH (09:03)
[2019-12-11] MEDS: FLUTICASONE NASAL SPRAY 50 MCG/SPRY 120 SPRAY/16 GM NASL SCH (09:06)
--- NOTE | 2019-12-11 14:58 | PDOC DISCHARGE SUMMARY ---
Impression - Admit/DC Date/PCP Admission Date/Primary Care Provider: 12/09/19 09:50 JAYY CLAROS MD Discharge Date: 12/11/19 - Discharge Diagnosis (1) Acute respiratory failure with hypoxia Is this a current diagnosis for this admission?: Yes (2) Asthma exacerbation Is this a current diagnosis for this admission?: Yes (3) Chronic sinusitis Is this a current diagnosis for this admission?: Yes (4) Eosinophilia Is this a current diagnosis for this admission?: Yes (5) Hyperglycemia Is this a current diagnosis for this admission?: Yes - Additional Information Resuscitation Status: Full Code Discharge Diet: Cardiac Discharge Activity: Activity As Tolerated, Balance Activity w/Rest Referrals: [facility] [NO LOCAL MD] - Follow up as needed Prescriptions: Ipratropium/Albuterol Sulfate [Duoneb 3 ml Ampul] 3 ml NEB RTQ6HP PRN #120 vial.neb PRN Reason: Shortness Of Breath Fluticasone Propionate [Flonase Nasal [place] 50 Mcg/[place] 16 gm] 2 spray NASL DAILY #1 spray.pump Methylprednisolone [Medrol Dosepack (4 mg/Tab) 21 Tab/Dosepak] 4 mg PO ASDIR PRN #21 tab.ds.pk PRN Reason: Benzonatate [Tessalon Perles 100 mg Capsule] 100 mg PO Q8HP PRN #15 capsule PRN Reason: Albuterol Sulfate [Ventolin 0.083% Neb 2.5 mg/3 mL Ampul] 1 vial NEB Q6HP PRN #120 vial PRN Reason: Home Medications: Albuterol Sulfate [Proair HFA Inhalation Aerosol 8.5 gm MDI] 2 puff IH Q6HP PRN 12/09/19 Amlodipine Besylate [Norvasc 5 mg Tablet] 5 mg PO DAILY 12/09/19 Atorvastatin Calcium [Lipitor 80 mg Tablet] 80 mg PO QPM 12/09/19 Carvedilol [Coreg 12.5 mg Tablet] 12.5 mg PO Q12 12/09/19 Clonidine HCl [Catapres 0.1 mg Tablet] 0.1 mg PO Q8 12/09/19 Furosemide [Lasix 20 mg Tablet] 20 mg PO DAILY 12/09/19 Hydrocodone/Acetaminophen [Collins 5-325 mg Tablet] 1 tab PO BID 03/26/20 Lisinopril 20 mg PO BID 12/09/19 Paroxetine HCl [Paxil 20 mg Tablet] 20 mg PO DAILY 12/09/19 Acetaminophen [Tylenol 325 mg Tablet] 650 mg PO Q4HP PRN tablet 12/11/19 Albuterol Sulfate [Ventolin 0.083% Neb 2.5 mg/3 mL Ampul] 1 vial NEB Q6HP PRN #120 vial 12/11/19 Benzonatate [Tessalon Perles 100 mg Capsule] 100 mg PO Q8HP PRN #15 capsule 12/11/19 Cetirizine HCl [Zyrtec 10 mg Tablet] 10 mg PO DAILY tablet 12/11/19 Fluticasone Propionate [Flonase Nasal [place] 50 Mcg/[place] 16 gm] 2 spray NASL DAILY #1 spray.pump 12/11/19 Ipratropium/Albuterol Sulfate [Duoneb 3 ml Ampul] 3 ml NEB RTQ6HP PRN #120 vial.neb 12/11/19 Methylprednisolone [Medrol Dosepack (4 mg/Tab) 21 Tab/Dosepak] 4 mg PO ASDIR PRN #21 tab.ds.pk 12/11/19 Phenol/Sodium Phenolate [Chloraseptic Sore Throat [place] 177 ml] 2 spray PO PRN PRN bottle 12/11/19 History of Present Illiness History of Present Illness: BRAD LÓPEZ is a 74 year old female with a past medical history of chronic sinusitis, asthma, renal carcinoma (received twice yearly MRIs for monitoring), and obesity who presented to the emergency department with a complaint of 2 to 3-days of progressively worsening dyspnea and wheezing unresponsive to home nebulizer treatments. Patient reports that she has never been admitted for asthma in the past. She states it has been "quite some time" since her last asthma exacerbation and does not require daily maintenance medications. Per EMS, the patient was found to have oxygen saturations of 82% on room air. She received Solu-Medrol, nebulizer treatments, and placed on BiPAP. Further evaluation in the emergency department revealed tachypnea, mild hypertension, normal WBCs with eosinophilia, chemistry revealed hyperglycemia (likely secondary to Solu-Medrol as her A1c was 5.6%) and an elevated CK to 531. Influenza was negative and chest x-ray clear. Patient was provided IV magnesium and additional nebulizer treatments. She has been referred to the hospitalist service for admission and management of the above-stated complaints findings. Hospital Course Hospital Course: (1) Acute respiratory failure with hypoxia Resolved. Now maintains saturations while ambulatory on room air. Secondary to asthma exacerbation. Patient was admitted to the medical floor on continuous cardiac telemetry. She was provided supplemental oxygen and BiPAP as needed to maintain saturations greater than 89%, scheduled and as needed nebulizer treatments, Flonase, Zyrtec and IV Solu-Medrol. Her symptoms rapidly resolved and steroids were weaned She is not ambulatory on room air. (2) Asthma exacerbation Improved. Management as above. Patient reports is likely related to seasonal allergies and sinusitis. She notes that she has had difficulty with allergies related to pine tree pollen this season. (3) Chronic sinusitis Recommend she Flonase and Zyrtec No indications for antibiotic therapy at this time. (4) Eosinophilia As above. (5) Hyperglycemia A1C 5.6% Elevated glucose is secondary to steroid use. Physical Exam Vital Signs: Temp Pulse Resp BP Pulse Ox 97.7 F 61 16 145/65 H 96 12/11/19 10:40 12/11/19 10:40 12/11/19 10:40 12/11/19 10:40 12/11/19 10:40 Intake & Output 12/10/19 12/11/19 12/12/19 06:59 06:59 06:59 Intake Total 892 1360 Balance 892 1360 Weight 107.5 kg General appearance: PRESENT: no acute distress, cooperative, obese, well- developed, well-nourished Head exam: PRESENT: atraumatic, normocephalic Eye exam: PRESENT: conjunctiva pink, EOMI, PERRLA. ABSENT: scleral icterus Mouth exam: PRESENT: moist, tongue midline Respiratory exam: PRESENT: clear to auscultation devon, symmetrical, unlabored. ABSENT: rales, rhonchi, wheezes Cardiovascular exam: PRESENT: RRR. ABSENT: diastolic murmur, rubs, systolic murmur Vascular exam: PRESENT: normal capillary refill Extremities exam: PRESENT: full ROM. ABSENT: calf tenderness, clubbing, pedal edema Musculoskeletal exam: PRESENT: ambulatory Neurological exam: PRESENT: alert, awake, oriented to person, oriented to place, oriented to time, oriented to situation, CN II-XII grossly intact. ABSENT: motor sensory deficit Psychiatric exam: PRESENT: appropriate affect, normal mood. ABSENT: homicidal ideation, suicidal ideation Skin exam: PRESENT: dry, intact, warm. ABSENT: cyanosis, rash Results Laboratory Results: WBC 8.3 10^3/uL (4.0-10.5) 12/10/19 06:12 RBC 3.74 10^6/uL (3.72-5.28) 12/10/19 06:12 Hgb 11.7 g/dL (12.0-15.5) L 12/10/19 06:12 Hct 34.6 % (36.0-47.0) L 12/10/19 06:12 MCV 92 fl (80-97) 12/10/19 06:12 MCH 31.3 pg (27.0-33.4) 12/10/19 06:12 MCHC 33.8 g/dL (32.0-36.0) 12/10/19 06:12 RDW 14.9 % (11.5-14.0) H 12/10/19 06:12 Plt Count 275 10^3/uL (150-450) 12/10/19 06:12 Lymph % (Auto) 32.2 % (13-45) 12/09/19 07:06 [place] % (Auto) 7.2 % (3-13) 12/09/19 07:06 Eos % (Auto) 10.3 % (0-6) H 12/09/19 07:06 Baso % (Auto) 0.4 % (0-2) 12/09/19 07:06 Absolute Neuts (auto) 5.2 10^3/uL (1.7-8.2) 12/09/19 07:06 Absolute Lymphs (auto) 3.4 10^3/uL (0.5-4.7) 12/09/19 07:06 Absolute Monos (auto) 0.7 10^3/uL (0.1-1.4) 12/09/19 07:06 Absolute Eos (auto) 1.1 10^3/uL (0.0-0.6) H 12/09/19 07:06 Absolute Basos (auto) 0.0 10^3/uL (0.0-0.2) 12/09/19 07:06 Seg Neutrophils % 49.9 % (42-78) 12/09/19 07:06 Sodium 138.2 mmol/L (137-145) 12/10/19 06:12 Potassium 3.8 mmol/L (3.6-5.0) 12/10/19 06:12 Chloride 102 mmol/L (98-107) 12/10/19 06:12 Carbon Dioxide 26 mmol/L (22-30) 12/10/19 06:12 Anion Gap 10 (5-19) 12/10/19 06:12 BUN 13 mg/dL (7-20) 12/10/19 06:12 Creatinine 0.50 mg/dL (0.52-1.25) L 12/10/19 06:12 Est GFR ( Amer) > 60 (>60) 12/10/19 06:12 Est GFR (MDRD) Non-Af > 60 (>60) 12/10/19 06:12 Glucose 164 mg/dL (75-110) H 12/10/19 06:12 Hemoglobin A1c % 5.6 % (4.7-6.0) 12/09/19 07:06 Calcium 9.1 mg/dL (8.4-10.2) 12/10/19 06:12 Total Bilirubin 0.5 mg/dL (0.2-1.3) 12/09/19 07:06 Direct Bilirubin 0.3 mg/dL (0.0-0.4) 12/09/19 07:06 Neonat Total Bilirubin Not Reportable 12/09/19 07:06 Neonat Direct Bilirubin Not Reportable 12/09/19 07:06 Neonat Indirect Bili Not Reportable 12/09/19 07:06 AST 41 U/L (14-36) H 12/09/19 07:06 ALT 20 U/L (<35) 12/09/19 07:06 Alkaline Phosphatase 129 U/L (38-126) H 12/09/19 07:06 Creatine Kinase 531 U/L (30-135) H 12/09/19 07:06 CK-MB (CK-2) 3.43 ng/mL (<4.55) 12/09/19 07:06 Troponin I 0.023 ng/mL 12/09/19 07:06 NT-Pro-B Natriuret Pep 84 pg/mL (<125) 12/09/19 07:06 Total Protein 7.6 g/dL (6.3-8.2) 12/09/19 07:06 Albumin 4.4 g/dL (3.5-5.0) 12/09/19 07:06 Urine Color YELLOW 12/09/19 07:06 Urine Appearance SLIGHTLY-CLOUDY 12/09/19 07:06 Urine pH 5.0 (5.0-9.0) 12/09/19 07:06 Ur Specific [place] 1.016 12/09/19 07:06 Urine Protein 100 mg/dL (NEGATIVE) H 12/09/19 07:06 Urine Glucose (UA) >=500 mg/dL (NEGATIVE) H 12/09/19 07:06 Urine Ketones NEGATIVE mg/dL (NEGATIVE) 12/09/19 07:06 Urine Blood NEGATIVE (NEGATIVE) 12/09/19 07:06 Urine Nitrite NEGATIVE (NEGATIVE) 12/09/19 07:06 Urine Bilirubin NEGATIVE (NEGATIVE) 12/09/19 07:06 Urine Urobilinogen NEGATIVE mg/dL (<2.0) 12/09/19 07:06 Ur Leukocyte Esterase NEGATIVE (NEGATIVE) 12/09/19 07:06 Urine WBC (Auto) 2 /HPF 12/09/19 07:06 Urine RBC (Auto) 2 /HPF 12/09/19 07:06 U Hyaline Cast (Auto) 22 /LPF 12/09/19 07:06 Squamous Epi Cells Auto 5 /HPF 12/09/19 07:06 Urine Mucus (Auto) RARE /LPF 12/09/19 07:06 Urine Ascorbic Acid 40 (NEGATIVE) H 12/09/19 07:06 Influenza A (Rapid) NEGATIVE (NEGATIVE) 12/09/19 07:06 Influenza B (Rapid) NEGATIVE (NEGATIVE) 12/09/19 07:06 12/09/19 07:06 CK-MB (CK-2) 3.43 Troponin I 0.023 NT-Pro-B Natriuret Pep 84 Impressions: Chest X-Ray 12/09/19 07:03 IMPRESSION: No acute cardiopulmonary findings. Plan Plan of Treatment: Patient was discharged home in stable condition. She is instructed to follow-up with her primary care provider within 1 week. Take medications as prescribed. Avoid known respiratory triggers (dust, pollen, strong perfumes, pet dander, smoke). Eat a heart healthy diet. Do NOT smoke. Return to emergency department as needed for concerning symptoms. Time Spent: Greater than 30 Minutes Stroke Is this a Stroke Patient?: No Acute Heart Failure - Is this a Heart Failure Patient?: No
== END 2019-12-11 11:29 | disposition home or self-care (01) ==
LOC: ER 06:46 → EH 09:50 → INTOOBSV 09:50 → 4S 12:17
PROVIDERS: ADMIT Internal Medicine; ATTEND Registered Nurse
DX: J96.01 Acute respiratory failure with hypoxia (principal); J45.21 Mild intermittent asthma with (acute) exacerbation; J32.9 Chronic sinusitis, unspecified; D72.1 Eosinophilia; R73.9 Hyperglycemia, unspecified; T38.0X5A Adverse effect of glucocorticoids and synthetic analogues, initial encounter; E66.9 Obesity, unspecified; I10 Essential (primary) hypertension; Z77.22 Contact with and (suspected) exposure to environmental tobacco smoke (acute) (chronic); Z79.899 Other long term (current) drug therapy; Z85.528 Personal history of other malignant neoplasm of kidney
CPT/HCPCS: 93005; 94640 ×4; 99291; 96365; 36415 ×2; 82553; 82550; 85025; 85027; 80048; 80053; 81001; 84484; 83036; 87804; 83880; 71045; 93010; 94660; A9270 ×33; J1644 ×3; J2920 ×3; J3475; J7030; G0378; J3490; J7620

== ENCOUNTER 2019-12-18 21:35 | Emergency (ER) | payer MEDICARE, BC ==
[2019-12-18 22:27] LABS: ABSOLUTE EOSINOPHILS # (AUTO) 1.4 10^3/uL (0.0-0.6); ABSOLUTE LYMPHOCYTES (AUTO) 3.5 10^3/uL (0.5-4.7); ABSOLUTE MONOCYTES (AUTO) 0.9 10^3/uL (0.1-1.4); ABSOLUTE NEUT (AUTO) 5.9 10^3/uL (1.7-8.2); BASOPHILS % (AUTO) 0.4 % (0-2); EOSINOPHILS % (AUTO) 12.2 % (0-6); HEMATOCRIT 41.7 % (36.0-47.0); LYMPHOCYTES % (AUTO) 29.7 % (13-45); MEAN CORPUSCULAR HEMOGLOBIN 31.2 pg (27.0-33.4); MEAN CORPUSCULAR HGB CONC 33.6 g/dL (32.0-36.0); MEAN CORPUSCULAR VOLUME 93 fl (80-97); MONOCYTES % (AUTO) 7.3 % (3-13); PLATELET COUNT 408 10^3/uL (150-450); RED CELL DISTRIBUTION WIDTH 14.6 % (11.5-14.0); SEGMENTED NEUTROPHILS % (AUTO) 50.4 % (42-78); TOTAL CELLS COUNTED % (AUTO) 100 %; WHITE BLOOD COUNT 11.7 10^3/uL (4.0-10.5)
[2019-12-18] MEDS ORDERED: METHYLPREDNISOLONE INJ 125 MG/2 ML SDV IV ONE (22:39)
[2019-12-18] MEDS ORDERED: IPRATROPIUM/ALBUTEROL 0.5-2.5 MG/3 ML AMPUL NEB ONE (22:40)
[2019-12-18] MEDS ORDERED: NORMAL SALINE 500 ML IV ONE (22:40)
[2019-12-18 22:46] LABS: ALBUMIN 3.9 g/dL (3.5-5.0); ALKALINE PHOSPHATASE 91 U/L (38-126); ASPARTATE AMINO TRANSFERASE 23 U/L (14-36); BILIRUBIN,DIRECT 0.1 mg/dL (0.0-0.4); BILIRUBIN,TOTAL 0.6 mg/dL (0.2-1.3); BLOOD UREA NITROGEN 15 mg/dL (7-20); CALCIUM 9.6 mg/dL (8.4-10.2); CARBON DIOXIDE 31 mmol/L (22-30); GLUCOSE 140 mg/dL (75-110); POTASSIUM 3.6 mmol/L (3.6-5.0); TOTAL PROTEIN 6.6 g/dL (6.3-8.2)
[2019-12-18 22:51] LABS: CHLORIDE 104 mmol/L (98-107)
[2019-12-18 22:52] LABS: ANION GAP 6 (5-19)
--- NOTE | 2019-12-18 22:55 | RADIOLOGY REPORT (SQ) ---
EXAM DESCRIPTION: XR CHEST 1 VIEW COMPLETED DATE/TME: 12/18/2019 10:25 Pm CLINICAL HISTORY: shortness of breath COMPARISON: December 09, 2019 FINDINGS: Cardiac silhouette is within normal limits. EKG leads project over the chest. There is no focal parenchymal or pleural disease. There is no acute osseous process visualized. IMPRESSION: No evidence of acute cardiopulmonary disease.
[2019-12-18] MEDS: MAGNESIUM SULFATE/D5W 1 GM/100 ML RTUPB IV SCH (23:10)
[2019-12-18 23:25] LABS: A TYPE INFLUENZA AG NEGATIVE (NEGATIVE); B INFLUENZA AG NEGATIVE (NEGATIVE)
--- NOTE | 2019-12-18 23:27 | ER Document Report ---
Entered by CHITRA HERRING SCRIBE 12/18/19 3075 Acting as scribe for:DANIEL CRAWFORD IV, MD ED Respiratory Problem - General Chief Complaint: Shortness Of Breath Stated Complaint: SHORTNESS OF BREATH, WHEEZING Time Seen by Provider: 12/18/19 21:48 Primary Care Provider: [facility] [NO LOCAL MD] - Follow up as needed Mode of Arrival: Ambulatory Information source: Patient Notes: This 74 year old female patient with a history of asthma and hypertension presents to the ED today with complaints of worsening shortness of breath with associated nonproductive cough that occurred today. Patient was seen here for similar symptoms on 12/09/2019 and was admitted; patient was discharged on 12/11/2019 with a diagnosis of acute respiratory failure with hypoxia and asthma exacerbation. Patient reports that she felt well after being discharged until last night when she she couldn't sleep due to dyspnea. Patient states that she took her last dose of Prednisone this morning. Patient denies fever, nausea, vomiting, or diarrhea. TRAVEL OUTSIDE OF THE [place] IN LAST 30 DAYS: No - Related Data Allergies/Adverse Reactions: No Known Allergies Allergy (Verified 12/09/19 07:16) Past Medical History - General Information source: Patient, [facility] Records - Social History Smoking Status: Never Smoker Cigarette use (# per day): No Chew tobacco use (# tins/day): No Smoking Education Provided: No Frequency of alcohol use: None Drug Abuse: None Family History: Reviewed & Not Pertinent, COPD, Hypertension, Malignancy Patient has suicidal ideation: No Patient has homicidal ideation: No - Past Medical History Cardiac Medical History: Reports: Hx Hypertension Pulmonary Medical History: Reports: Hx Asthma Malignancy Medical History: Reports: Hx Renal (Kidney) Cancer Musculoskeletal Medical History: Reports Hx Arthritis Past Surgical History: Reports: Hx Orthopedic Surgery - Hip replacement Medical plates and screws in spine - Immunizations Hx Diphtheria, Pertussis, Tetanus Vaccination: Yes Review of Systems - Review of Systems Constitutional: See HPI. denies: Fever EENT: No symptoms reported Cardiovascular: See HPI, Dyspnea Respiratory: See HPI, Cough, Short of breath. denies: Sputum Gastrointestinal: See HPI. denies: Diarrhea, Nausea, Vomiting Genitourinary: No symptoms reported Female Genitourinary: No symptoms reported Musculoskeletal: No symptoms reported Skin: No symptoms reported Hematologic/Lymphatic: No symptoms reported Neurological/Psychological: No symptoms reported -: Yes All other systems reviewed and negative Physical Exam - Vital signs Vitals: Pulse Ox 95 12/18/19 21:46 Interpretation: Hypertensive - General General appearance: Alert - HEENT Head: Normocephalic, Atraumatic Eyes: Normal Pupils: PERRL - Respiratory Respiratory status: No respiratory distress Chest status: Nontender Breath sounds: Wheezing - Expiratory Chest palpation: Normal - Cardiovascular Rhythm: Regular Heart sounds: Normal auscultation Murmur: No Friction rub: No Gallop: None auscultated - Abdominal Inspection: Normal Distension: No distension Bowel sounds: Normal Tenderness: Nontender - Abdomen soft Organomegaly: No organomegaly - Back Back: Normal, Nontender - Extremities General upper extremity: Normal inspection General lower extremity: Normal inspection - Neurological Neuro grossly intact: Yes - Psychological Associated symptoms: Normal affect, Normal mood - Skin Skin Temperature: Warm Skin Moisture: Dry Skin Color: Normal Course - Re-evaluation Re-evalutation: 12/19/19 01:26 Results of ED MSE discussed with patient. COVID testing, self quarantine precautions discussed with patient. All questions were answered prior to discharge. Emergency signs and symptoms, reasons to return to the emergency department discussed with patient. - Vital Signs Vital signs: Temp Pulse Resp BP Pulse Ox 98.7 F 82 19 144/70 H 93 12/18/19 22:08 12/18/19 22:08 12/19/19 01:01 12/19/19 01:01 12/19/19 01:01 - Laboratory Result Diagrams: 12/18/19 21:55 12/18/19 21:55 Laboratory results interpreted by me: 12/18/19 12/18/19 21:55 21:55 WBC 11.7 H RDW 14.6 H Eos % (Auto) 12.2 H Absolute Eos (auto) 1.4 H Carbon Dioxide 31 H Glucose 140 H - Diagnostic Test Radiology reviewed: Reports reviewed - EKG Interpretation by Me Additional EKG results interpreted by me: 12/19/19 01:28 EKG obtained on 12/18/2019 at 2229 hrs. was interpreted by this MD. Findings: Sinus rhythm with a rate of 76, normal axis, P waves proceed QRS complexes, QRS complexes appear narrow, there are no obvious patterns of ST segment elevation or depression present to suggest acute myocardial ischemia or infarction. Impression normal sinus rhythm with nonspecific ST segments. Discharge - Discharge Clinical Impression: Acute dyspnea Condition: Good Disposition: HOME, SELF-CARE Additional Instructions: Return to the Emergency Department without delay if any worse. HOME CARE INSTRUCTIONS & INFORMATION: Thank you for choosing us for your medical needs. We hope you're satisfied with the care you received. After you leave, you must properly care for your problem and, at the same time, observe its progress. Any condition can change. Some illnesses can change rapidly over hours or days. If your condition worsens, return to the Emergency Department or see your physician promptly. ABOUT YOUR X-RAYS AND EKG'S: If you had an EKG or X-rays taken, they have been read by the Emergency Physician. The X-rays and EKG's will also be read by a Radiologist or Um Specialist within 24 hours. If discrepancies are noted, you will be notified by telephone. Please be certain the ED has a correct telephone number & address where you can be reached. Also, realize that some fractures or abnormalities do not show up on initial X-rays. If your symptoms continue, see your physician. ABOUT YOUR LABORATORY TEST: If you had laboratory tests, the results have been reviewed by the Emergency Physician. Some test results (for example cultures) may not be available for several days. You will be contacted if any test result shows you need additional treatment. Please be certain the ED has a correct telephone number and address where you can be reached. ABOUT YOUR MEDICATIONS: You will receive instructions on how to take your medicine on the prescription label you receive. Additional information may be provided by the Pharmacy. If you have questions afterwards, call the ED for clarification or further instructions. Some prescribed medications may cause drowsiness. Do not perform tasks such as driving a car or operating machinery without consulting your Pharmacist. If you feel you need a refill of pain medication, your condition will need re-evaluation. Please do not call for a refill of any medication. ABOUT YOUR SIGNATURE: Signature of this document acknowledges to followin. Understanding that you received emergency treatment and that you may be released before al medical problems are known or treated. Please be certain the ED has a correct phone number & address where you can be reached. 2. Acknowledgement that you will arrange for follow-up care as recommended. 3. Authorization for the Emergency Physician to provide information to your follow-up Physician in order to maximize your care. AT ANY TIME, IF YOUR SYMPTOMS CHANGE SIGNIFICANTLY OR WORSEN OR YOU DEVELOP NEW SYMPTOMS, RETURN TO THE EMERGENCY DEPARTMENT IMMEDIATELY FOR RE-EVALUATION. OUR GOAL IS TO PROVIDE EXCELLENT MEDICAL CARE! WE HOPE THAT WE HAVE MET YOUR EXPECTATIONS DURING YOUR EMERGENCY DEPARTMENT VISIT AND THAT YOU FEEL YOU HAVE RECEIVED EXCELLENT CARE! Prescriptions: Prednisone [Deltasone 10 mg Tablet] 10 mg PO ASDIR PRN #21 tablet PRN Reason: Referrals: [facility] [NO LOCAL MD] - 12/20/19 I personally performed the services described in the documentation, reviewed and edited the documentation which was dictated to the scribe in my presence, and it accurately records my words and actions.
[2019-12-19] MEDS: MAGNESIUM SULFATE/D5W 1 GM/100 ML RTUPB IV SCH (00:15)
[2019-12-19 01:17] LABS: APPEARANCE,URINE SLIGHTLY-CLOUDY; BILIRUBIN,URINE NEGATIVE (NEGATIVE); COLOR,URINE YELLOW; GLUCOSE, URINE NEGATIVE (NEGATIVE); KETONES,URINE NEGATIVE (NEGATIVE); LEUKOCYTE ESTERASE,URINE NEGATIVE (NEGATIVE); NITRITE,URINE NEGATIVE (NEGATIVE); PROTEIN,URINE NEGATIVE (NEGATIVE); URINE SPECIFIC GRAVITY 1.018; UROBILINOGEN,URINE NEGATIVE mg/dL (<2.0)
[2019-12-19 01:47] VITALS: BP 138/64
--- NOTE | 2019-12-19 10:48 | EKG REPORT ---
SEVERITY:- ABNORMAL ECG - SINUS RHYTHM ABNORMAL T, CONSIDER ISCHEMIA, LATERAL LEADS BORDERLINE PROLONGED QT INTERVAL : Confirmed by: Valencia Reynolds 19-Dec-2019 10:48:05
== END 2019-12-19 01:46 | disposition home or self-care (01) ==
LOC: ER 21:35
DX: J45.909 Unspecified asthma, uncomplicated (principal); R06.02 Shortness of breath; R05 Cough; I10 Essential (primary) hypertension; Z20.828 Contact with and (suspected) exposure to other viral communicable diseases
CPT/HCPCS: 93005; 94640; 99285; 96375; 96365; 96366; 36415; 85025; 87635; 80053; 81001; 87804; 71045; 93010; J2930; J3475 ×2; J7040; A9270; J7620

== ENCOUNTER 2019-12-28 01:42 | Emergency (ER) | payer MEDICARE, BC ==
[2019-12-28] MEDS ORDERED: ALBUTEROL SULFATE 0.083% NEB 2.5 MG/3 ML AMPUL NEB ONE (02:13)
[2019-12-28] MEDS ORDERED: IPRATROPIUM/ALBUTEROL 0.5-2.5 MG/3 ML AMPUL NEB ONE (02:13)
[2019-12-28] MEDS ORDERED: METHYLPREDNISOLONE INJ 125 MG/2 ML SDV IV ONE (02:13)
--- NOTE | 2019-12-28 02:27 | ER Document Report ---
ED Respiratory Problem - General Chief Complaint: Cough Stated Complaint: SHORTNESS OF BREATH Time Seen by Provider: 12/28/19 01:54 Primary Care Provider: JAYY CLAROS MD [Primary Care Provider] - Follow up as needed Mode of Arrival: Ambulatory Information source: Patient Notes: Patient is a 74-year-old female presenting to the emergency department chief co mplaint of cough and shortness of breath. Patient reports she was admitted to this hospital on 12/08 and discharged on 12/10. She states she was admitted for acute respiratory failure. She states she was sent home on prednisone which helped her symptoms. She states her breathing became worse and return to the emergency department on 12/18/2019. She states she was given medications and had a COVID-19 test done at that time. She states that she has worsened over the last few days at home. She does report the health department called her and said her COVID-19 testing was negative. She reports profound shortness of breath and persistent nonproductive cough. She states she has never had an a sthma or COPD flareup like this. She states she has been taking breathing treatments at home without relief. She was started on Levaquin 500 mg today by her primary care provider although he did not see her in person. TRAVEL OUTSIDE OF THE [place] IN LAST 30 DAYS: No - Related Data Allergies/Adverse Reactions: No Known Allergies Allergy (Verified 12/28/19 02:12) Past Medical History - General Information source: Patient - Social History Smoking Status: Never Smoker Family History: Reviewed & Not Pertinent, COPD, Hypertension, Malignancy Patient has suicidal ideation: No Patient has homicidal ideation: No - Past Medical History Cardiac Medical History: Reports: Hx Hypertension Pulmonary Medical History: Reports: Hx Asthma Renal/ Medical History: Denies: Hx Peritoneal Dialysis Malignancy Medical History: Reports: Hx Renal (Kidney) Cancer Musculoskeletal Medical History: Reports Hx Arthritis Past Surgical History: Reports: Hx Orthopedic Surgery - Hip replacement Medical plates and screws in spine - Immunizations Hx Diphtheria, Pertussis, Tetanus Vaccination: Yes Review of Systems - Review of Systems Constitutional: No symptoms reported EENT: No symptoms reported Cardiovascular: Dyspnea Respiratory: Cough, Short of breath, Wheezing Gastrointestinal: No symptoms reported Genitourinary: No symptoms reported Female Genitourinary: No symptoms reported Musculoskeletal: No symptoms reported Skin: No symptoms reported Hematologic/Lymphatic: No symptoms reported Neurological/Psychological: No symptoms reported Physical Exam - Vital signs Vitals: Resp Pulse Ox 24 H 87 L 12/28/19 01:43 12/28/19 01:43 - Notes Notes: PHYSICAL EXAMINATION: GENERAL: Appears to be stated age, well-groomed, appears to be in mild respiratory distress. HEAD: Atraumatic, normocephalic. EYES: Pupils equal round and reactive to light, extraocular movements intact, conjunctiva are normal. ENT: Nares patent, oropharynx clear without exudates. Moist mucous membranes. NECK: Normal range of motion, supple without lymphadenopathy LUNGS: Inspiratory and expiratory wheezes noted bilaterally, increased work of breathing. HEART: Regular rate and rhythm without murmurs ABDOMEN: Soft, nontender, nondistended abdomen. No guarding, no rebound. No masses appreciated. Female : No CVA tenderness Musculoskeletal: Normal range of motion, no pitting or edema. No cyanosis. NEUROLOGICAL: Cranial nerves grossly intact. Normal speech, normal gait. Normal sensory, motor exams PSYCH: Normal mood, normal affect. SKIN: Warm, Dry, normal turgor, no rashes or lesions noted. Course - Re-evaluation Re-evalutation: 12/28/19 05:00 Patient's lung sounds and work of breathing have improved significantly since administration of medications in the emergency department. Patient reports she is still not well enough to be discharged home. Will monitor patient over the next 1 to 2 hours. Given patient's persistent dry cough and shortness of breath will test her for COVID-19. Patient reports she feels much improved after medications given in the ED. Patient will be discharged home at this time. - Vital Signs Vital signs: Temp Pulse Resp BP Pulse Ox 98.1 F 74 18 153/71 H 93 12/28/19 08:30 12/28/19 08:30 12/28/19 08:30 12/28/19 08:30 12/28/19 08:30 - Laboratory Result Diagrams: 12/28/19 02:26 12/28/19 02:26 Laboratory results interpreted by me: 12/28/19 12/28/19 02:26 02:26 RDW 15.0 H Eos % (Auto) 13.0 H Absolute Eos (auto) 1.1 H Carbon Dioxide 34 H Glucose 121 H Discharge - Discharge Clinical Impression: Shortness of breath, Cough Asthma exacerbation Qualifiers: Asthma severity: moderate Asthma persistence: unspecified Qualified Code(s): J45.901 - Unspecified asthma with (acute) exacerbation Condition: Stable Disposition: HOME, SELF-CARE Additional Instructions: Please continue medication that your primary care provider prescribed. You were given a dose of prednisone this morning, take your next dose tomorrow. Use the Tessalon Perles as prescribed to help with the cough. Your COVID-19 test is pending, the health department will call you with the results. Please have a low threshold for returning to the emergency department with any new or worsening symptoms. Prescriptions: Benzonatate [Tessalon Perles 100 mg Capsule] 1 - 2 tab PO Q8HP PRN #30 capsule PRN Reason: Prednisone [Deltasone 20 mg Tablet] 2 tab PO DAILY 5 Days #10 tablet Referrals: JAYY CLAROS MD [Primary Care Provider] - Follow up as needed
[2019-12-28] MEDS: MAGNESIUM SULFATE/D5W 1 GM/100 ML RTUPB IV SCH ×2 (02:39→02:40)
[2019-12-28 02:56] LABS: ABSOLUTE EOSINOPHILS # (AUTO) 1.1 10^3/uL (0.0-0.6); ABSOLUTE LYMPHOCYTES (AUTO) 1.9 10^3/uL (0.5-4.7); ABSOLUTE MONOCYTES (AUTO) 0.5 10^3/uL (0.1-1.4); ABSOLUTE NEUT (AUTO) 4.9 10^3/uL (1.7-8.2); BASOPHILS % (AUTO) 0.4 % (0-2); HEMATOCRIT 41.2 % (36.0-47.0); HEMOGLOBIN 13.9 g/dL (12.0-15.5); LYMPHOCYTES % (AUTO) 22.4 % (13-45); MEAN CORPUSCULAR HEMOGLOBIN 31.3 pg (27.0-33.4); MEAN CORPUSCULAR HGB CONC 33.8 g/dL (32.0-36.0); MEAN CORPUSCULAR VOLUME 93 fl (80-97); MONOCYTES % (AUTO) 6.3 % (3-13); PLATELET COUNT 308 10^3/uL (150-450); RED BLOOD COUNT 4.46 10^6/uL (3.72-5.28); SEGMENTED NEUTROPHILS % (AUTO) 57.9 % (42-78); TOTAL CELLS COUNTED % (AUTO) 100 %; WHITE BLOOD COUNT 8.4 10^3/uL (4.0-10.5)
[2019-12-28 03:00] LABS: VENOUS BLOOD BASE EXCESS -3.7 mmol/L; VENOUS BLOOD HCO3 22.6 mmol/L (20-32); VENOUS BLOOD PCO2 45.5 mmHg (35-63); VENOUS BLOOD PH 7.31 (7.30-7.42)
--- NOTE | 2019-12-28 03:08 | RADIOLOGY REPORT (SQ) ---
AP Portable chest: 12/28/2019 2:07 AM CDT History: 74-year old patient with cough and dyspnea. Comparison: Chest radiograph performed 12/18/2019. Findings: The cardiomediastinal silhouette is normal in size. No pneumothorax is seen. No acute airspace opacities are seen. No discrete pleural effusion is apparent. There is elevation of the right hemidiaphragm. Impression: No acute airspace opacities are seen.
[2019-12-28 03:18] LABS: ALBUMIN 3.9 g/dL (3.5-5.0); ALKALINE PHOSPHATASE 97 U/L (38-126); ANION GAP 5 (5-19); ASPARTATE AMINO TRANSFERASE 23 U/L (14-36); BILIRUBIN,TOTAL 0.4 mg/dL (0.2-1.3); BLOOD UREA NITROGEN 16 mg/dL (7-20); CALCIUM 9.4 mg/dL (8.4-10.2); CARBON DIOXIDE 34 mmol/L (22-30); CHLORIDE 101 mmol/L (98-107); GLUCOSE 121 mg/dL (75-110); POTASSIUM 3.6 mmol/L (3.6-5.0); TOTAL PROTEIN 6.8 g/dL (6.3-8.2)
[2019-12-28] MEDS ORDERED: PREDNISONE 20 MG TABLET PO ONE (07:23)
[2019-12-28] MEDS ORDERED: BENZONATATE 100 MG CAPSULE PO ONE (07:33)
[2019-12-28 08:57] VITALS: BP 153/71
== END 2019-12-28 08:30 | disposition home or self-care (01) ==
LOC: ER 01:42
DX: J45.901 Unspecified asthma with (acute) exacerbation (principal); R05 Cough; R06.02 Shortness of breath; I10 Essential (primary) hypertension; Z20.828 Contact with and (suspected) exposure to other viral communicable diseases
CPT/HCPCS: 94640 ×2; 99285; 96375; 96365; 96366; 36415; 85025; 87635; 80053; 82803; 71045; A9270 ×4; J2930; J3475; J7512; J7620

== ENCOUNTER → 2020-01-31 | Outpatient (CLI) | payer MEDICARE, BC ==
--- NOTE | 2020-01-31 13:50 | RADIOLOGY REPORT (SQ) ---
EXAM DESCRIPTION: MRI ABDOMEN COMBO IMAGES COMPLETED DATE/TIME: 01/31/2020 11:08 am REASON FOR STUDY: RENAL MASS, RIGHT N28.89 OTHER SPECIFIED DISORDERS OF KIDNEY AND URETER COMPARISON: 06/28/2019 TECHNIQUE: Multiplanar multisequence imaging performed without and with contrast including sagittal, axial and coronal T2, axial T1, axial gradient fat sat T1, axial, sagittal and coronal fat sat T1 po st contrast. CONTRAST TYPE AND DOSE: 20 mL Dotarem. RENAL FUNCTION: Not indicated. ACR Type II contrast agent associated with few, if any, unconfounded cases of NSF LIMITATIONS: None. FINDINGS: LIVER: Normal size. No masses. No dilated ducts. CBD normal. SPLEEN: Normal size. No focal lesions. PANCREAS: No masses. No adjacent inflammation or peripancreatic fluid collections. Pancreatic duct no t dilated. GALLBLADDER: No masses. No stones. No gallbladder wall thickening or pericholecystic fluid. ADRENAL GLANDS: No significant masses or asymmetry. RIGHT KIDNEY AND URETER: Stable small solid mass along the medial aspect of the midpole. Signal rekha acteristics are stable the lesion measures just under 2 cm in greatest dimensions. Stable enhancemen t. LEFT KIDNEY AND URETER: No masses. No hydronephrosis. AORTA AND VESSELS: No aneurysm. No dissection. Renal arteries, SMA, celiac without stenosis. RETROPERITONEUM: No retroperitoneal adenopathy, hemorrhage or masses. BOWEL: No visualized masses. No inflammation. No significant dilatation. ABDOMINAL WALL AND PERITONEUM: No hernias. No free fluid. BONES: Postsurgical changes in the lumbar spine. OTHER: Hiatal hernia is again noted. IMPRESSION: Stable small solid right renal lesion just under 2 cm in greatest diameter. No new find ings. TECHNICAL DOCUMENTATION: JOB ID: [id number] 2010 [employer]- All Rights Reserved Reading location - IP/workstation name: [email or web address]
== END ==
LOC: PTST 09:48
PROVIDERS: ATTEND Urology
DX: N28.89 Other specified disorders of kidney and ureter (principal); D49.519 Neoplasm of unspecified behavior of unspecified kidney; K44.9 Diaphragmatic hernia without obstruction or gangrene
CPT/HCPCS: 74183; A9576

== ENCOUNTER 2020-05-05 03:22 | Inpatient (IN) | payer MEDICARE, BC ==
[2020-05-05] MEDS ORDERED: PROPOFOL 1,000 MG/100 ML INFUS..BTL IV PRN (03:27)
[2020-05-05] MEDS ORDERED: AMPICILLIN SOD/SULBACTAM 3 GM VIAL IV ONE (03:28)
[2020-05-05] MEDS ORDERED: AZITHROMYCIN INJ 500 MG VIAL IV ONE (03:29)
--- NOTE | 2020-05-05 03:36 | ER Document Report ---
Entered by CHITRA HERRING SCRIBE 05/05/20 0328 Acting as scribe for:RASHID JUAREZ DO ED Respiratory Problem - General Stated Complaint: SOB Mode of Arrival: Medic Information source: Emergency Med Personnel Notes: This 75 year old female patient brought in by EMS from home presents to the ED today with complaints of increasing shortness of breath and cough with green phlegm. EMS reports that the patient was doing a DuoNeb treatment prior to their arrival and the family became concerned because the patient's SOB appeared to be getting worse, so they called EMS. Upon their arrival, patient was unresponsive with O2 sats in the 70s, so they administered Ketamine and Rocuronium and intubated the patient. Patient has a history of HTN, HLD, and asthma. TRAVEL OUTSIDE OF THE [place] IN LAST 30 DAYS: No - Related Data Allergies/Adverse Reactions: No Known Allergies Allergy (Verified 05/05/20 04:29) Past Medical History - General Information source: [facility] Records - Social History Smoking Status: Unknown if Ever Smoked Family History: Reviewed & Not Pertinent, COPD, Hypertension, Malignancy - Past Medical History Cardiac Medical History: Reports: Hx Hypertension Pulmonary Medical History: Reports: Hx Asthma Malignancy Medical History: Reports: Hx Renal (Kidney) Cancer Musculoskeletal Medical History: Reports Hx Arthritis Past Surgical History: Reports: Hx Hysterectomy, Hx Orthopedic Surgery - Hip replacement Medical plates and screws in spine - Immunizations Hx Diphtheria, Pertussis, Tetanus Vaccination: Yes Review of Systems - Review of Systems -: Yes ROS unobtainable due to patient's medical condition - Intubated Physical Exam - Vital signs Vitals: Resp Pulse Ox 13 83 L 05/05/20 03:24 05/05/20 03:24 - General General appearance: Other - Intubated - HEENT Head: Normocephalic, Atraumatic Eyes: Normal Pupils: PERRL - Respiratory Respiratory status: Other - Intubated Chest status: Nontender Breath sounds: Wheezing - Expiratory wheezing bilaterally Chest palpation: Normal - Cardiovascular Rhythm: Regular Heart sounds: Normal auscultation Murmur: No Friction rub: No Gallop: None auscultated - Abdominal Inspection: Obese Distension: No distension Bowel sounds: Normal Tenderness: Nontender - Abdomen soft Organomegaly: No organomegaly - Back Back: Normal, Nontender - Extremities General upper extremity: Normal inspection General lower extremity: Edema - Trace edema bilaterally - Neurological Kevin Coma Scale Eye Opening: None Kevin Coma Scale Verbal: None Kevin Coma Scale Motor: None Boaz Coma Scale Total: 3 - Psychological Associated symptoms: Other - Unable to assess - Skin Skin Temperature: Warm Skin Moisture: Dry Skin Color: Normal Course - Re-evaluation Re-evalutation: 05/05/20 04:56 MDM 75 year old female with acute resp failure tonight at home. EMS intubated in the field after ketamine and rockuronium. Lactate is elevated and yellow green productive cough, but cxr looks well. Soluemdrol given en route and cultures, fluids and antibiotics given here. I have consulted with the weathercaster team here and they have graciously agreed to see and evaluate for admission. - Vital Signs Vital signs: Temp Pulse Resp BP Pulse Ox 99.2 F 94 16 161/79 H 100 05/05/20 03:26 05/05/20 03:26 05/05/20 05:01 05/05/20 05:01 05/05/20 05:01 - Laboratory Result Diagrams: 05/05/20 03:24 05/05/20 03:24 Laboratory results interpreted by me: 05/05/20 05/05/20 05/05/20 03:24 03:24 03:24 Eos % (Auto) 11.9 H Absolute Eos (auto) 1.1 H Potassium 3.5 L Glucose 133 H Lactic Acid 4.8 H Magnesium NT-Pro-B Natriuret Pep Urine Protein Urine Nitrite 05/05/20 05/05/20 05/05/20 03:24 03:24 04:36 Eos % (Auto) Absolute Eos (auto) Potassium Glucose Lactic Acid Magnesium 2.8 H NT-Pro-B Natriuret Pep 170 H Urine Protein 30 H Urine Nitrite POSITIVE H - Diagnostic Test Radiology reviewed: Image reviewed, Reports reviewed - EKG Interpretation by Me EKG shows normal: Sinus rhythm Rate: Normal Rhythm: NSR - NSR Nl Pettigrew 97 BPM Repol Ab without st elevation or depression my interpretation. Critical Care Note - Critical Care Note Total time excluding time spent on procedures (mins): 45 Discharge - Discharge Clinical Impression: Acute respiratory failure with hypoxia, Hypokalemia Condition: Serious Disposition: ADMITTED INPATIENT Admitting Provider: Ansley (Loom Operator) Unit Admitted: ICU I personally performed the services described in the documentation, reviewed and edited the documentation which was dictated to the scribe in my presence, and it accurately records my words and actions.
[2020-05-05 03:42] LABS: ABSOLUTE EOSINOPHILS # (AUTO) 1.1 10^3/uL (0.0-0.6); ABSOLUTE LYMPHOCYTES (AUTO) 3.1 10^3/uL (0.5-4.7); ABSOLUTE MONOCYTES (AUTO) 0.7 10^3/uL (0.1-1.4); ABSOLUTE NEUT (AUTO) 4.4 10^3/uL (1.7-8.2); BASOPHILS % (AUTO) 0.5 % (0-2); EOSINOPHILS % (AUTO) 11.9 % (0-6); HEMOGLOBIN 13.4 g/dL (12.0-15.5); LYMPHOCYTES % (AUTO) 32.9 % (13-45); MEAN CORPUSCULAR HEMOGLOBIN 29.2 pg (27.0-33.4); MEAN CORPUSCULAR HGB CONC 32.5 g/dL (32.0-36.0); MEAN CORPUSCULAR VOLUME 90 fl (80-97); MONOCYTES % (AUTO) 7.7 % (3-13); PLATELET COUNT 335 10^3/uL (150-450); RED BLOOD COUNT 4.57 10^6/uL (3.72-5.28); RED CELL DISTRIBUTION WIDTH 13.7 % (11.5-14.0); TOTAL CELLS COUNTED % (AUTO) 100 %; WHITE BLOOD COUNT 9.4 10^3/uL (4.0-10.5)
[2020-05-05 03:56] LABS: ALBUMIN 4.3 g/dL (3.5-5.0); ALKALINE PHOSPHATASE 89 U/L (38-126); ANION GAP 16 (5-19); ASPARTATE AMINO TRANSFERASE 36 U/L (14-36); BILIRUBIN,TOTAL 0.3 mg/dL (0.2-1.3); BLOOD UREA NITROGEN 8 mg/dL (7-20); CALCIUM 9.1 mg/dL (8.4-10.2); CARBON DIOXIDE 26 mmol/L (22-30); CHLORIDE 102 mmol/L (98-107); CREATINE KINASE 105 U/L (30-135); GLUCOSE 133 mg/dL (75-110); POTASSIUM 3.5 mmol/L (3.6-5.0); TOTAL PROTEIN 7.2 g/dL (6.3-8.2)
[2020-05-05] MEDS ORDERED: NORMAL SALINE 1000 ML 1,000 ML IV PRN (03:59)
[2020-05-05 04:07] LABS: NT PRO BNP 170 pg/mL (<125)
[2020-05-05 04:08] LABS: TROPONIN I < 0.012 ng/mL
--- NOTE | 2020-05-05 04:39 | RADIOLOGY REPORT (SQ) ---
EXAM DESCRIPTION: XR CHEST 1 VIEW COMPLETED DATE/TME: 05/05/2020 03:25 CLINICAL HISTORY: 75 years, Female, resp failure COMPARISON: 12/28/2019 chest NUMBER OF VIEWS: 1 TECHNIQUE: Portable chest LIMITATIONS: None. FINDINGS: The heart size is normal. Endotracheal tube tip 3 cm above the ralph. Enteric tube, the tip extends into the upper abdomen. No pneumothorax. Elevation of the right hemidiaphragm with airspace opacity in the medial right upper lobe likely reflecting atelectasis. Underlying pneumonia not excluded. IMPRESSION: Suspected right upper lobe atelectasis. Underlying pneumonia not excluded. Endotracheal and enteric tubes are in place copyright 2010 [employer]- All Rights Reserved
[2020-05-05] MEDS: PROPOFOL 1,000 MG/100 ML INFUS..BTL IV PRN ×4 (05:00→14:37)
[2020-05-05 05:05] LABS: APPEARANCE,URINE CLEAR; BILIRUBIN,URINE NEGATIVE (NEGATIVE); COLOR,URINE YELLOW; GLUCOSE, URINE NEGATIVE (NEGATIVE); KETONES,URINE NEGATIVE (NEGATIVE); LEUKOCYTE ESTERASE,URINE NEGATIVE (NEGATIVE); NITRITE,URINE POSITIVE (NEGATIVE); PROTEIN,URINE 30 mg/dL (NEGATIVE); UROBILINOGEN,URINE NEGATIVE mg/dL (<2.0)
[2020-05-05] MEDS ORDERED: NORMAL SALINE 1000 ML 1,000 ML IV ONE (05:06)
[2020-05-05] MEDS ORDERED: POTASSIUM CHLORIDE 20 MEQ PACKET PO ONE (05:18)
[2020-05-05 05:27] LABS: INTERNATIONAL RATION (INR) 0.99; PROTHROMBIN TIME 13.3 SEC (11.4-15.4)
--- NOTE | 2020-05-05 05:53 | CRITICAL CARE ADMISSION REPORT ---
HPI Date:: 05/05/20 Time:: 05:29 Reason for ICU Reason:: acute respiratory failure with hypoxemia requiring intubation Admission Date/Time & PCP: Admission Date/Time: Primary Care Provider: VICTOR MANUEL EAST MD Pt intubated in the field by EMS critical care consulted by ED provider for admissin to Dr. Panchal. HPI: 75 year old white female whom was experiencing shortness of breath at home unrelieved by home nebulizer treatment. Per the family after completing her breathing treatment she did not improve respiratory elaine and they called EMS. The patient does have a past medical to include asthma; however, per the reports she has not had any complication in many years. Upon EMS arrival the patient had a room air sat in the 70's and was unresponsive. Per the records the decision was made to intubate the patient. The patient was brought to [place] by EMS and evaluated by the ER provider who then consulted critical care for admission and management of this patient. The patient was tested for Covid by ER staff results are pending. Upon my assessment of the patient in the ED she is intubated sats of 98% BP stable and sedated with use of diprivan. - Diagnosis/Plan (1) Acute respiratory failure with hypoxia Is this a current diagnosis for this admission?: Yes Plan: Will keep patient intubated obtain ABG and begin sedation vacation and weaning trials when appropriate (2) Pneumonia Qualifiers: Pneumonia type: due to unspecified organism Laterality: right Lung location: upper lobe of lung Qualified Code(s): J18.9 - Pneumonia, unspecified organism Is this a current diagnosis for this admission?: Yes Plan: xry reveals possible RUL pneumonia will tret as community acquired with rocephin and azithro (3) Asthma exacerbation Qualifiers: Asthma severity: moderate Asthma persistence: unspecified Qualified Code(s): J45.901 - Unspecified asthma with (acute) exacerbation Is this a current diagnosis for this admission?: Yes Plan: admin steroids and nebulizer treatment scheduled (4) Hypokalemia Is this a current diagnosis for this admission?: Yes Plan: replace elctrolyte and repeat labs Past Medical History Cardiac Medical History: Reports: Hypertension Pulmonary Medical History: Reports: Asthma EENT Medical History: Reports: Cataracts Neurological Medical History: Denies: Seizures Endocrine Medical History: Reports: Obesity Malignancy Medical History: Reports: Renal (Kidney) Cancer GI Medical History: Denies: Hepatitis, Hiatal Hernia Musculoskeltal Medical History: Reports: Arthritis Hematology: Denies: Anemia, Sickle Cell Disease Past Surgical History Past Surgical History: Reports: Hysterectomy, Orthopedic Surgery - Hip replacement Medical plates and screws in spine Social/Family History - Social History Lives with: Family Smoking Status: Unknown if Ever Smoked Frequency of Alcohol Use: Social Hx Recreational Drug Use: No - Family History Family History: Other - unable to obtain - Medication/Allergies Home Medications: Albuterol Sulfate [Proair HFA Inhalation Aerosol 8.5 gm MDI] 2 puff IH Q6HP PRN 12/09/19 Amlodipine Besylate [Norvasc 5 mg Tablet] 5 mg PO DAILY 12/09/19 Atorvastatin Calcium [Lipitor 80 mg Tablet] 80 mg PO QPM 12/09/19 Carvedilol [Coreg 12.5 mg Tablet] 12.5 mg PO Q12 12/09/19 Clonidine HCl [Catapres 0.1 mg Tablet] 0.1 mg PO Q8 12/09/19 Furosemide [Lasix 20 mg Tablet] 20 mg PO DAILY 12/09/19 Hydrocodone/Acetaminophen [[place] 5-325 mg Tablet] 1 tab PO BID 12/09/19 Lisinopril 20 mg PO BID 12/09/19 Paroxetine HCl [Paxil 20 mg Tablet] 20 mg PO DAILY 12/09/19 Albuterol Sulfate [Ventolin 0.083% Neb 2.5 mg/3 mL Ampul] 1 vial NEB Q6HP PRN #120 vial 12/11/19 Fluticasone Propionate [Flonase Nasal [place] 50 Mcg/[place] 16 gm] 2 spray NASL DAILY #1 spray.pump 12/11/19 Ipratropium/Albuterol Sulfate [Duoneb 3 ml Ampul] 3 ml NEB RTQ6HP PRN #120 vial.neb 12/11/19 Besifloxacin HCl [Besivance 0.6% Oph Susp 5 ml] 1 drop OP TID 05/02/20 Bromfenac Sodium [Prolensa] 1.6 ml OP ASDIR PRN 05/02/20 Difluprednate [Durezol] 5 ml OP ASDIR PRN 05/02/20 Allergies/Adverse Reactions: No Known Allergies Allergy (Verified 05/05/20 04:29) Review of Systems ROS unobtainable: Due to endotracheal tube Physical Exam Vital Signs: Temp Pulse Resp BP Pulse Ox 99.2 F 94 16 161/79 H 100 05/05/20 03:26 05/05/20 03:26 05/05/20 05:01 05/05/20 05:01 05/05/20 05:01 Intake & Output 05/03/20 05/04/20 05/05/20 06:59 06:59 06:59 Weight 103.6 kg Weight/Height Weight 103.6 kg Height 5 ft 5 in General appearance: PRESENT: no acute distress - intubted and sedated, well- developed, well-nourished Head exam: PRESENT: atraumatic, normocephalic Eye exam: PRESENT: PERRLA Ear exam: PRESENT: normal external ear exam Mouth exam: PRESENT: moist Neck exam: PRESENT: full ROM. ABSENT: JVD, lymphadenopathy, tracheal deviation Respiratory exam: PRESENT: symmetrical, wheezes Cardiovascular exam: PRESENT: RRR, +S1, +S2 Pulses: PRESENT: normal radial pulses, +1 pedal pulses bilateral Vascular exam: PRESENT: normal capillary refill GI/Abdominal exam: PRESENT: normal bowel sounds, soft Gentrourinary exam: PRESENT: indwelling catheter Extremities exam: PRESENT: full ROM, +1 edema Neurological exam: PRESENT: reflexes normal, other - sedated Skin exam: PRESENT: dry, intact, normal color, warm. ABSENT: rash Tubes/Lines: PRESENT: Endotracheal Tube Laboratory/Radiographs Laboratory Results: 05/05/20 03:24 05/05/20 03:24 05/05/20 05/05/20 05/05/20 03:24 03:24 03:24 WBC 9.4 RBC 4.57 Hgb 13.4 Hct 41.0 MCV 90 MCH 29.2 MCHC 32.5 RDW 13.7 Plt Count 335 Seg Neutrophils % 47.0 Sodium 144.4 Potassium 3.5 L Chloride 102 Carbon Dioxide 26 Anion Gap 16 BUN 8 Creatinine 0.66 Est GFR ( Amer) > 60 Glucose 133 H Lactic Acid 4.8 H Calcium 9.1 Magnesium Total Bilirubin 0.3 AST 36 Alkaline Phosphatase 89 Total Protein 7.2 Albumin 4.3 TSH Urine Color Urine Appearance Urine pH Ur Specific [place] Urine Protein Urine Glucose (UA) Urine Ketones Urine Blood Urine Nitrite Ur Leukocyte Esterase Urine WBC (Auto) Urine RBC (Auto) 08/21/20 08/21/20 08/21/20 03:24 03:24 04:36 WBC RBC Hgb Hct MCV MCH MCHC RDW Plt Count Seg Neutrophils % Sodium Potassium Chloride Carbon Dioxide Anion Gap BUN Creatinine Est GFR ( Amer) Glucose Lactic Acid Calcium Magnesium 2.8 H Total Bilirubin AST Alkaline Phosphatase Total Protein Albumin TSH 4.63 Urine Color YELLOW Urine Appearance CLEAR Urine pH 5.0 Ur Specific [place] 1.010 Urine Protein 30 H Urine Glucose (UA) NEGATIVE Urine Ketones NEGATIVE Urine Blood NEGATIVE Urine Nitrite POSITIVE H Ur Leukocyte Esterase NEGATIVE Urine WBC (Auto) 2 Urine RBC (Auto) 1 05/05/20 05/05/20 03:24 03:24 Creatine Kinase 105 Troponin I < 0.012 NT-Pro-B Natriuret Pep 170 H Impressions: Chest X-Ray 05/05/20 03:25 IMPRESSION: Suspected right upper lobe atelectasis. Underlying pneumonia not excluded. Endotracheal and enteric tubes are in place copyright 2011 [employer]- All Rights Reserved All labs, radiographs, diagnostic studies and EKGs were personally reviewed: Yes In addition, reports of radiographic and diagnostic studies were read: Yes Critical Time Critical Time (minutes): 55 -: The care of a critically ill patient is dynamic. This note represents a static moment in the admission process. Orders and treatments may be given simultaneously and urgently, and time is not wire rope sales representative of the treatment process. This patient requires Critical Care secondary to life threatening organ or limb dysfunction. Without Critical Care services, the patient is at risk for increased mortality and morbidity.
[2020-05-05] MEDS ORDERED: PANTOPRAZOLE SODIUM 40 MG VIAL IV SCH ×2 (06:00→10:15)
[2020-05-05] MEDS: IPRATROPIUM/ALBUTEROL 0.5-2.5 MG/3 ML AMPUL NEB SCH ×5 (06:19→20:17)
[2020-05-05 06:47] LABS: ARTERIAL BLOOD BASE EXCESS -1.1 mmol/L; ARTERIAL BLOOD FIO2 60%; ARTERIAL BLOOD H2CO3 1.81 mmol/L (1.05-1.35); ARTERIAL BLOOD HCO3 26.9 mmol/L (20-24); ARTERIAL BLOOD O2 SATURATION 97.5 % (94-98); ARTERIAL BLOOD PH 7.27 (7.35-7.45); ARTERIAL BLOOD PO2 113.9 mmHg (80-100); ARTERIAL BLOOD TOTAL CO2 28.8 mmol/L (21-25)
[2020-05-05] MEDS ORDERED: CEFTRIAXONE 2 GM/D5W RTU 2 GM/50 ML RTUPB IV SCH (07:00)
[2020-05-05] MEDS: FENTANYL CITRATE INJ/PF 100 MCG/2 ML AMPUL IV PRN ×3 (08:19→14:36)
[2020-05-05] MEDS: RINGERS SOLUTION,LACTATED 1,000 ML IV PRN ×2 (09:00→21:33)
--- NOTE | 2020-05-05 09:39 | Progress Note ---
Provider Note Provider Note: Patient seen today. Stable on vent. Asthma exacerbations frequently are a hypercarbia issue leading to intubation. Oxygenation is frequently not effected as much. RR dropped to 10, FiO2 to 40% and PEEP to 8. CC time 20 minutes.
[2020-05-05] MEDS ORDERED: METHYLPREDNISOLONE INJ 40 MG/1 ML SDV IV SCH (10:00)
--- NOTE | 2020-05-05 10:08 | EKG REPORT ---
SEVERITY:- ABNORMAL ECG - SINUS RHYTHM NONSPECIFIC T ABNORMALITIES, LATERAL LEADS PROLONGED QT INTERVAL : Confirmed by: Valencia Reynolds 05-May-2020 10:07:09
[2020-05-05] MEDS ORDERED: ALBUTEROL SULFATE 0.083% NEB 2.5 MG/3 ML AMPUL NEB PRN (10:31)
[2020-05-05] MEDS: HEPARIN SOD (PORCINE) 5,000 UNIT/ML 1 ML VIAL SUBCUT SCH ×3 (11:58→21:32)
[2020-05-05] MEDS: ALBUTEROL SULFATE 0.083% NEB 2.5 MG/3 ML AMPUL NEB SCH ×3 (12:27→20:17)
[2020-05-05] MEDS: AMLODIPINE BESYLATE 5 MG TABLET PO SCH (21:30)
[2020-05-05] MEDS: CARVEDILOL 12.5 MG TABLET PO SCH (21:31)
[2020-05-05] MEDS: ATORVASTATIN CALCIUM 80 MG TABLET PO SCH (21:31)
[2020-05-06] MEDS: ALBUTEROL SULFATE 0.083% NEB 2.5 MG/3 ML AMPUL NEB SCH ×6 (00:40→19:54)
[2020-05-06] MEDS: IPRATROPIUM/ALBUTEROL 0.5-2.5 MG/3 ML AMPUL NEB SCH ×2 (00:40→04:12)
[2020-05-06] MEDS: HEPARIN SOD (PORCINE) 5,000 UNIT/ML 1 ML VIAL SUBCUT SCH ×3 (05:34→21:29)
[2020-05-06 05:35] LABS: ABSOLUTE BASOPHILS # (AUTO) 0.1 10^3/uL (0.0-0.2); ABSOLUTE LYMPHOCYTES (AUTO) 1.8 10^3/uL (0.5-4.7); ABSOLUTE MONOCYTES (AUTO) 1.1 10^3/uL (0.1-1.4); ABSOLUTE NEUT (AUTO) 7.9 10^3/uL (1.7-8.2); BASOPHILS % (AUTO) 0.5 % (0-2); EOSINOPHILS % (AUTO) 0.3 % (0-6); HEMATOCRIT 35.5 % (36.0-47.0); HEMOGLOBIN 11.8 g/dL (12.0-15.5); LYMPHOCYTES % (AUTO) 16.6 % (13-45); MEAN CORPUSCULAR HEMOGLOBIN 29.1 pg (27.0-33.4); MEAN CORPUSCULAR HGB CONC 33.2 g/dL (32.0-36.0); MEAN CORPUSCULAR VOLUME 88 fl (80-97); MONOCYTES % (AUTO) 9.9 % (3-13); PLATELET COUNT 292 10^3/uL (150-450); RED BLOOD COUNT 4.05 10^6/uL (3.72-5.28); RED CELL DISTRIBUTION WIDTH 13.8 % (11.5-14.0); SEGMENTED NEUTROPHILS % (AUTO) 72.7 % (42-78); TOTAL CELLS COUNTED % (AUTO) 100 %; WHITE BLOOD COUNT 10.9 10^3/uL (4.0-10.5)
[2020-05-06] MEDS ORDERED: ACETAMINOPHEN 325 MG TABLET PO ONE (05:45)
[2020-05-06 05:58] LABS: ALBUMIN 3.7 g/dL (3.5-5.0); ALKALINE PHOSPHATASE 75 U/L (38-126); ANION GAP 10 (5-19); ASPARTATE AMINO TRANSFERASE 23 U/L (14-36); BILIRUBIN,DIRECT 0.3 mg/dL (0.0-0.4); BILIRUBIN,TOTAL 0.6 mg/dL (0.2-1.3); BLOOD UREA NITROGEN 10 mg/dL (7-20); CALCIUM 9.1 mg/dL (8.4-10.2); CARBON DIOXIDE 26 mmol/L (22-30); CHLORIDE 104 mmol/L (98-107); GLUCOSE 130 mg/dL (75-110); POTASSIUM 3.8 mmol/L (3.6-5.0); TOTAL PROTEIN 6.4 g/dL (6.3-8.2)
[2020-05-06] MEDS ORDERED: AZITHROMYCIN 500 MG in DEXTROSE 5%-WATER 250 ML IV SCH (06:00)
[2020-05-06] MEDS ORDERED: AZITHROMYCIN INJ 500 MG VIAL IV SCH (06:00)
[2020-05-06] MEDS ORDERED: (PENDING PHARMACY ID) (Esomeprazole Magnesium [Nexium 24hr] 20 MG) PO SCH (06:00)
[2020-05-06 06:13] LABS: FREE T4 (FREE THYROXINE) 0.96 ng/dL (0.78-2.19)
[2020-05-06 06:27] LABS: THYROID STIMULATING HORMONE 0.45 uIU/mL (0.47-4.68)
--- NOTE | 2020-05-06 08:45 | RADIOLOGY REPORT (SQ) ---
EXAM DESCRIPTION: CHEST SINGLE VIEW IMAGES COMPLETED DATE/TIME: 05/06/2020 6:27 am REASON FOR STUDY: intubated COMPARISON: 05/05/2020 FINDINGS: One view chest AP portable semi-upright. Extubated now. Allowing for differences in positioning, stable exam with clear lungs. No pneumothorax. Stable card iomediastinal silhouette. TECHNICAL DOCUMENTATION: JOB ID: [id number] Reading location - IP/workstation name: [email or web address]
--- NOTE | 2020-05-06 10:35 | PDOC CRITICAL CARE PROG REPORT ---
General Date:: 05/06/20 Hospital Day:: 2 Resuscitation Status: Full Code Events in the past 12 to 24 Hours:: Extubated and doing well. Review of systems relevant to events:: Pulmonary Reason for ICU Addmission:: Extubated and nearly ready for discharge. - Medications: Medications reviewed and adjusted accordingly: Yes Vasopressors:: None Sedation:: None Physical Exam Vital Signs: Temp Pulse Resp BP Pulse Ox 98.6 F 72 13 185/79 H 97 05/06/20 08:00 05/06/20 08:00 05/06/20 08:00 05/06/20 08:00 05/06/20 08:00 Intake & Output 05/05/20 05/06/20 05/07/20 06:59 06:59 06:59 Intake Total 1014 1761 1250 Output Total 1675 900 Balance 1014 86 350 Weight 103.6 kg 103.3 kg Weight/Height Weight 103.3 kg Height 5 ft 5 in General appearance: PRESENT: no acute distress, cooperative, obese Head exam: PRESENT: atraumatic, normocephalic Eye exam: PRESENT: conjunctiva pink, EOMI, PERRLA. ABSENT: scleral icterus Ear exam: PRESENT: normal external ear exam Mouth exam: PRESENT: moist, tongue midline Respiratory exam: PRESENT: clear to auscultation devon. ABSENT: rales, rhonchi, wheezes Cardiovascular exam: PRESENT: RRR. ABSENT: diastolic murmur, rubs, systolic murmur GI/Abdominal exam: PRESENT: normal bowel sounds, soft. ABSENT: distended, guarding, mass, organolmegaly, rebound, tenderness Rectal exam: PRESENT: deferred Gentrourinary exam: PRESENT: indwelling catheter Extremities exam: PRESENT: full ROM. ABSENT: calf tenderness, clubbing, pedal edema Musculoskeletal exam: PRESENT: normal inspection Neurological exam: PRESENT: alert, awake, oriented to person, oriented to place, oriented to time, oriented to situation, CN II-XII grossly intact. ABSENT: motor sensory deficit Psychiatric exam: PRESENT: appropriate affect, normal mood. ABSENT: homicidal ideation, suicidal ideation Skin exam: PRESENT: dry, intact, warm. ABSENT: cyanosis, rash Laboratory/Radiographs Laboratory Results: 05/06/20 05:15 05/06/20 05:15 05/06/20 05/06/20 05/06/20 05:15 05:15 05:15 WBC 10.9 H RBC 4.05 Hgb 11.8 L Hct 35.5 L MCV 88 MCH 29.1 MCHC 33.2 RDW 13.8 Plt Count 292 Seg Neutrophils % 72.7 Sodium 139.7 Potassium 3.8 Chloride 104 Carbon Dioxide 26 Anion Gap 10 BUN 10 Creatinine 0.55 Est GFR ( Amer) > 60 Glucose 130 H Calcium 9.1 Total Bilirubin 0.6 AST 23 Alkaline Phosphatase 75 Total Protein 6.4 Albumin 3.7 TSH 0.45 L Free T4 0.96 05/05/20 10:59 Tracheal Aspirate Gram Stain - Final 05/05/20 04:36 Tracheal Aspirate Gram Stain - Final 05/05/20 04:36 Tracheal Aspirate Sputum Culture - Final 05/05/20 05/05/20 05/05/20 03:24 03:24 05:11 Creatine Kinase 105 Troponin I < 0.012 NT-Pro-B Natriuret Pep 170 H Cancelled 05/05/20 05/05/20 05/05/20 06:35 06:35 11:27 Creatine Kinase 98 Troponin I 0.049 0.027 NT-Pro-B Natriuret Pep 05/05/20 05/05/20 17:54 17:54 Creatine Kinase 61 Troponin I 0.016 NT-Pro-B Natriuret Pep Impressions: Resolving asthma exacerbation. EKG: NSR All labs, radiographs, diagnostic studies and EKGs were personally reviewed: Yes In addition, reports of radiographic and diagnostic studies were read: Yes Assessment and Plan - Diagnosis (1) Acute respiratory failure with hypoxia Is this a current diagnosis for this admission?: Yes Plan: Said to have low O2 saturations by EMS and the reason for intubation. No hypoxia since admission (2) Asthma exacerbation Qualifiers: Asthma severity: moderate Asthma persistence: unspecified Qualified Code(s): J45.901 - Unspecified asthma with (acute) exacerbation Is this a current diagnosis for this admission?: Yes Plan: No wheezing, resolved with steroids and albuterol. Plan Summary: Ready for medical floor. Short coase of prednisone. Encouraged to use nebulizer at home before asthma gets this worse. Predict discharge tomorrow Critical Time Critical Time (minutes): 25 Level of Care: MEDICAL Anticipated discharge: Home Anticipated DC Timeframe: within 24 hours -: 1. The care of a critical patient is a dynamic process. This note is a customer loyalty representative synopsis but static in nature. The timeframe for treatments given in order is not necessarily the actual time these treatments may have been done. 2. This patient requires critical care secondary to ongoing requirements for therapy not offered or safe outside the critical care environment. Transfer to a lower level of care will result in altered life or limb morbidity and mortality. 3. Multidisciplinary rounds completed. 4. ABCDE bundle addressed.
[2020-05-06] MEDS: PREDNISONE 20 MG TABLET PO SCH (10:58)
[2020-05-06] MEDS: LEVOFLOXACIN 500 MG TABLET PO SCH (10:58)
[2020-05-06] MEDS: FUROSEMIDE 20 MG TABLET PO SCH (10:59)
[2020-05-06] MEDS: HYDROCODONE/ACETAMINOPHEN 5-325 MG TABLET PO SCH ×2 (10:59→17:02)
[2020-05-06] MEDS: CARVEDILOL 12.5 MG TABLET PO SCH ×2 (10:59→21:28)
[2020-05-06] MEDS: PAROXETINE HCL 20 MG TABLET PO SCH (11:00)
--- NOTE | 2020-05-06 19:22 | Progress Note ---
Provider Note Provider Note: Patient was seen and examined at bedside. Transferred from the ICU. History and labs reviewed. Transfer appropriate. Will continue to follow
[2020-05-06] MEDS: ATORVASTATIN CALCIUM 80 MG TABLET PO SCH (21:28)
[2020-05-06] MEDS: AMLODIPINE BESYLATE 5 MG TABLET PO SCH (21:28)
[2020-05-06] MEDS: CLONIDINE HCL 0.1 MG TABLET PO SCH (21:29)
[2020-05-07] MEDS: ALBUTEROL SULFATE 0.083% NEB 2.5 MG/3 ML AMPUL NEB SCH ×4 (00:19→12:00)
[2020-05-07 05:47] LABS: ABSOLUTE EOSINOPHILS # (AUTO) 0.2 10^3/uL (0.0-0.6); ABSOLUTE LYMPHOCYTES (AUTO) 3.3 10^3/uL (0.5-4.7); ABSOLUTE MONOCYTES (AUTO) 0.8 10^3/uL (0.1-1.4); ABSOLUTE NEUT (AUTO) 5.8 10^3/uL (1.7-8.2); BASOPHILS % (AUTO) 0.3 % (0-2); EOSINOPHILS % (AUTO) 2.2 % (0-6); HEMATOCRIT 36.5 % (36.0-47.0); HEMOGLOBIN 12.1 g/dL (12.0-15.5); LYMPHOCYTES % (AUTO) 32.7 % (13-45); MEAN CORPUSCULAR HEMOGLOBIN 29.2 pg (27.0-33.4); MEAN CORPUSCULAR HGB CONC 33.3 g/dL (32.0-36.0); MEAN CORPUSCULAR VOLUME 88 fl (80-97); MONOCYTES % (AUTO) 7.6 % (3-13); PLATELET COUNT 314 10^3/uL (150-450); RED BLOOD COUNT 4.16 10^6/uL (3.72-5.28); RED CELL DISTRIBUTION WIDTH 13.6 % (11.5-14.0); SEGMENTED NEUTROPHILS % (AUTO) 57.2 % (42-78); TOTAL CELLS COUNTED % (AUTO) 100 %; WHITE BLOOD COUNT 10.1 10^3/uL (4.0-10.5)
[2020-05-07 06:17] LABS: ALKALINE PHOSPHATASE 79 U/L (38-126); ANION GAP 11 (5-19); ASPARTATE AMINO TRANSFERASE 22 U/L (14-36); BILIRUBIN,DIRECT 0.1 mg/dL (0.0-0.4); BILIRUBIN,TOTAL 0.6 mg/dL (0.2-1.3); BLOOD UREA NITROGEN 12 mg/dL (7-20); CALCIUM 9.4 mg/dL (8.4-10.2); CARBON DIOXIDE 32 mmol/L (22-30); CHLORIDE 99 mmol/L (98-107); GLUCOSE 105 mg/dL (75-110); POTASSIUM 3.6 mmol/L (3.6-5.0); TOTAL PROTEIN 6.8 g/dL (6.3-8.2)
[2020-05-07] MEDS: CLONIDINE HCL 0.1 MG TABLET PO SCH ×2 (06:27→14:27)
[2020-05-07] MEDS: HEPARIN SOD (PORCINE) 5,000 UNIT/ML 1 ML VIAL SUBCUT SCH ×2 (06:27→14:29)
[2020-05-07] MEDS: FUROSEMIDE 20 MG TABLET PO SCH (08:41)
[2020-05-07] MEDS ORDERED: LISINOPRIL 10 MG TABLET PO SCH (10:00)
[2020-05-07] MEDS: HYDROCODONE/ACETAMINOPHEN 5-325 MG TABLET PO SCH (11:00)
[2020-05-07] MEDS: PREDNISONE 20 MG TABLET PO SCH (11:00)
[2020-05-07] MEDS: PAROXETINE HCL 20 MG TABLET PO SCH (11:00)
[2020-05-07] MEDS: LEVOFLOXACIN 500 MG TABLET PO SCH (11:00)
[2020-05-07] MEDS: CARVEDILOL 12.5 MG TABLET PO SCH (11:12)
[2020-05-07 14:13] VITALS: BP 185/79
--- NOTE | 2020-05-07 20:20 | PDOC DISCHARGE SUMMARY ---
Impression - Admit/DC Date/PCP Admission Date/Primary Care Provider: 05/05/20 05:17 SHEFALI ORLANDO MD Discharge Date: 05/07/20 - Discharge Diagnosis (1) Acute respiratory failure with hypoxia Is this a current diagnosis for this admission?: Yes - Additional Information Resuscitation Status: Full Code Discharge Diet: As Tolerated Discharge Activity: Activity As Tolerated, Balance Activity w/Rest Referrals: [facility] [NO LOCAL MD] - Prescriptions: Amoxicillin/Potassium Clav [Augmentin 875-125 Tablet] 1 tab PO BID 5 Days #14 tab NS Prednisone [Deltasone 20 mg Tablet] 40 mg PO DAILY 5 Days #5 tablet Fluticasone Propion/Salmeterol [Fluticasone-Salmeterol 100-50] 1 each IH BID 30 Days #14 blst.w.dev Albuterol Sulfate [Ventolin 0.083% Neb 2.5 mg/3 mL Ampul] 2.5 mg NEB RTQ4 14 Days #14 vial.neb Home Medications: Amlodipine Besylate [Norvasc 5 mg Tablet] 5 mg PO QHS 12/09/19 Atorvastatin Calcium [Lipitor 80 mg Tablet] 80 mg PO QHS 12/09/19 Carvedilol [Coreg 12.5 mg Tablet] 6.25 mg PO Q12 12/09/19 Furosemide [Lasix 20 mg Tablet] 20 mg PO QAM 12/09/19 Hydrocodone/Acetaminophen [[place] 5-325 mg Tablet] 1 tab PO BID 12/09/19 Lisinopril 20 mg PO BID 12/09/19 Clonidine HCl [Catapres 0.1 mg Tablet] 0.1 mg PO Q8 05/05/20 Esomeprazole Magnesium [Nexium 24Hr] 20 mg PO Q6AM 05/05/20 Ibuprofen 200 mg PO ASDIR PRN 05/05/20 Paroxetine HCl [Paxil 20 mg Tablet] 20 mg PO DAILY 05/05/20 Albuterol Sulfate [Ventolin 0.083% Neb 2.5 mg/3 mL Ampul] 2.5 mg NEB RTQ4 14 Days #14 vial.neb 05/07/20 Amoxicillin/Potassium Clav [Augmentin 875-125 Tablet] 1 tab PO BID 5 Days #14 tab NS 05/07/20 Fluticasone Propion/Salmeterol [Fluticasone-Salmeterol 100-50] 1 each IH BID 30 Days #14 blst.w.dev 05/07/20 Prednisone [Deltasone 20 mg Tablet] 40 mg PO DAILY 5 Days #5 tablet 05/07/20 History of Present Illiness History of Present Illness: BRAD LÓPEZ is a 75 year old female, past medical history of asthma, hypertension, who was brought in by EMS because of shortness of breath. She developed shortness of breath few hours prior to admission, when she woke up short of breath despite using nebulizing treatments. She denies any prior episode. Diagnosed with asthma 2 years ago but has rarely used her inhalers. According to her she was also advised by her physician to undergo polysomnography for possible CPAP use however however she has not gone. She was intubated in the ED and was sent to the ICU. ABG showed acute respiratory acidosis pH of 7.27 PCO2 of 60 PaO2 114 bicarb 26.9. Chest x-ray findings showed suspicious right lower lobe density. Hospital Course Hospital Course: She did well in the ICU. Her mental status improved, and she was successfully extubated the very next day. She was then transferred to regular floors the same night she was extubated. She did well overnight and in the morning she was awake alert talking able to ambulate, with no further recurrence of shortness of breath. She was discharged on albuterol inhaler fluticasone inhaler and antibiotics to complete 7 days treatment. She was told to follow-up with a move coordinator and her primary care physician Physical Exam Vital Signs: Temp Pulse Resp BP Pulse Ox 98.8 F 74 16 185/79 H 98 05/07/20 14:10 05/07/20 14:10 05/07/20 14:10 05/07/20 14:10 05/07/20 14:10 Intake & Output 05/06/20 05/07/20 05/08/20 06:59 06:59 06:59 Intake Total 1761 2190 545 Output Total 1675 1660 Balance 86 530 545 Weight 103.3 kg 98.8 kg 90.1 kg General appearance: PRESENT: no acute distress, obese Head exam: PRESENT: atraumatic, normocephalic Eye exam: PRESENT: EOMI, PERRLA Mouth exam: PRESENT: moist Neck exam: PRESENT: full ROM Respiratory exam: PRESENT: clear to auscultation devon, rhonchi, symmetrical, wh eezes Cardiovascular exam: PRESENT: RRR, +S1, +S2 GI/Abdominal exam: PRESENT: normal bowel sounds, soft. ABSENT: tenderness Extremities exam: ABSENT: joint swelling, +1 edema, +2 edema Musculoskeletal exam: PRESENT: full ROM Neurological exam: PRESENT: alert, awake, oriented to person, oriented to place, oriented to time Psychiatric exam: PRESENT: normal mood Results Laboratory Results: WBC 10.1 10^3/uL (4.0-10.5) 05/07/20 05:05 RBC 4.16 10^6/uL (3.72-5.28) 05/07/20 05:05 Hgb 12.1 g/dL (12.0-15.5) 05/07/20 05:05 Hct 36.5 % (36.0-47.0) 05/07/20 05:05 MCV 88 fl (80-97) 05/07/20 05:05 MCH 29.2 pg (27.0-33.4) 05/07/20 05:05 MCHC 33.3 g/dL (32.0-36.0) 05/07/20 05:05 RDW 13.6 % (11.5-14.0) 05/07/20 05:05 Plt Count 314 10^3/uL (150-450) 05/07/20 05:05 Lymph % (Auto) 32.7 % (13-45) 05/07/20 05:05 [place] % (Auto) 7.6 % (3-13) 05/07/20 05:05 Eos % (Auto) 2.2 % (0-6) 05/07/20 05:05 Baso % (Auto) 0.3 % (0-2) 05/07/20 05:05 Absolute Neuts (auto) 5.8 10^3/uL (1.7-8.2) 05/07/20 05:05 Absolute Lymphs (auto) 3.3 10^3/uL (0.5-4.7) 05/07/20 05:05 Absolute Monos (auto) 0.8 10^3/uL (0.1-1.4) 05/07/20 05:05 Absolute Eos (auto) 0.2 10^3/uL (0.0-0.6) 05/07/20 05:05 Absolute Basos (auto) 0.0 10^3/uL (0.0-0.2) 05/07/20 05:05 Seg Neutrophils % 57.2 % (42-78) 05/07/20 05:05 PT 13.3 SEC (11.4-15.4) 05/05/20 03:24 INR 0.99 05/05/20 03:24 Carbonic Acid 1.81 mmol/L (1.05-1.35) H 05/05/20 06:34 HCO3/H2CO3 Ratio 14:1 05/05/20 06:34 ABG pH 7.27 (7.35-7.45) L 05/05/20 06:34 ABG pCO2 60.0 mmHg (35-45) H 05/05/20 06:34 ABG pO2 113.9 mmHg (80-100) H 05/05/20 06:34 ABG HCO3 26.9 mmol/L (20-24) H 05/05/20 06:34 ABG Total CO2 28.8 mmol/L (21-25) H 05/05/20 06:34 ABG O2 Saturation 97.5 % (94-98) 05/05/20 06:34 ABG Base Excess -1.1 mmol/L 05/05/20 06:34 FiO2 60% 05/05/20 06:34 Sodium 142.0 mmol/L (137-145) 05/07/20 05:05 Potassium 3.6 mmol/L (3.6-5.0) 05/07/20 05:05 Chloride 99 mmol/L (98-107) 05/07/20 05:05 Carbon Dioxide 32 mmol/L (22-30) H 05/07/20 05:05 Anion Gap 11 (5-19) 05/07/20 05:05 BUN 12 mg/dL (7-20) 05/07/20 05:05 Creatinine 0.60 mg/dL (0.52-1.25) 05/07/20 05:05 Est GFR ( Amer) > 60 (>60) 05/07/20 05:05 Est GFR (MDRD) Non-Af > 60 (>60) 05/07/20 05:05 Glucose 105 mg/dL (75-110) 05/07/20 05:05 Lactic Acid 1.7 mmol/L (0.7-2.1) 05/05/20 06:35 Calcium 9.4 mg/dL (8.4-10.2) 05/07/20 05:05 Phosphorus 6.3 mg/dL (2.5-4.5) H 05/05/20 03:24 Magnesium 2.8 mg/dL (1.6-2.3) H 05/05/20 03:24 Total Bilirubin 0.6 mg/dL (0.2-1.3) 05/07/20 05:05 Direct Bilirubin 0.1 mg/dL (0.0-0.4) 05/07/20 05:05 Neonat Total Bilirubin Not Reportable 05/07/20 05:05 Neonat Direct Bilirubin Not Reportable 05/07/20 05:05 Neonat Indirect Bili Not Reportable 05/07/20 05:05 AST 22 U/L (14-36) 05/07/20 05:05 ALT 15 U/L (<35) 05/07/20 05:05 Alkaline Phosphatase 79 U/L (38-126) 05/07/20 05:05 Creatine Kinase 61 U/L (30-135) 05/05/20 17:54 Troponin I 0.016 ng/mL 05/05/20 17:54 NT-Pro-B Natriuret Pep Cancelled 05/05/20 05:11 Total Protein 6.8 g/dL (6.3-8.2) 05/07/20 05:05 Albumin 4.0 g/dL (3.5-5.0) 05/07/20 05:05 TSH 0.45 uIU/mL (0.47-4.68) L 05/06/20 05:15 Free T4 0.96 ng/dL (0.78-2.19) 05/06/20 05:15 Urine Color YELLOW 05/05/20 04:36 Urine Appearance CLEAR 05/05/20 04:36 Urine pH 5.0 (5.0-9.0) 05/05/20 04:36 Ur Specific [place] 1.010 05/05/20 04:36 Urine Protein 30 mg/dL (NEGATIVE) H 05/05/20 04:36 Urine Glucose (UA) NEGATIVE mg/dL (NEGATIVE) 05/05/20 04:36 Urine Ketones NEGATIVE mg/dL (NEGATIVE) 05/05/20 04:36 Urine Blood NEGATIVE (NEGATIVE) 05/05/20 04:36 Urine Nitrite POSITIVE (NEGATIVE) H 05/05/20 04:36 Urine Bilirubin NEGATIVE (NEGATIVE) 05/05/20 04:36 Urine Urobilinogen NEGATIVE mg/dL (<2.0) 05/05/20 04:36 Ur Leukocyte Esterase NEGATIVE (NEGATIVE) 05/05/20 04:36 Urine WBC (Auto) 2 /HPF 05/05/20 04:36 Urine RBC (Auto) 1 /HPF 05/05/20 04:36 U Hyaline Cast (Auto) 15 /LPF 05/05/20 04:36 Urine Bacteria (Auto) 1+ /HPF 05/05/20 04:36 Squamous Epi Cells Auto <1 /HPF 05/05/20 04:36 Urine Mucus (Auto) RARE /LPF 05/05/20 04:36 Urine Ascorbic Acid NEGATIVE (NEGATIVE) 05/05/20 04:36 COVID-19 Source NASOPHARYNGEAL 05/05/20 04:36 COVID-19 (ASHIA) NOT DETECTED 05/05/20 04:36 05/05/20 05/05/20 05/05/20 03:24 05:11 06:35 Troponin I < 0.012 0.049 NT-Pro-B Natriuret Pep 170 H Cancelled 05/05/20 05/05/20 11:27 17:54 Troponin I 0.027 0.016 NT-Pro-B Natriuret Pep Impressions: Chest X-Ray 05/05/20 03:25 IMPRESSION: Suspected right upper lobe atelectasis. Underlying pneumonia not excluded. Endotracheal and enteric tubes are in place copyright 2010 [employer]- All Rights Reserved Plan Health Concerns: Follow-up with primary care physician and move coordinator for possible need for polysomnography -Medications added on top of albuterol for asthma Stroke Is this a Stroke Patient?: No Stroke Pt being discharged on Anti-thrombolytic therapy?: No Reason(s) for not prescribing Anti-thrombolytic therapy:: Not indicated Stroke Pt being discharged on Anti-coagulation therapy?: No Reason(s) for not prescribing Anti-coagulation therapy:: Not indicated Stroke Pt being discharged on Statins?: No Reason(s) for not prescribing Statins therapy:: Not indicated Acute Heart Failure - Is this a Heart Failure Patient?: No Documentation of LVEF assessment?: No, Document reason LVEF - Reason: Not indicated LVEF: LVEF Greater Than 40% Anticoagulant Therapy: No, document contraindications Reason(s) not Discharged on Anticoagulant Therapy: Other Anticoagulant Therapy Reason - Other: Not indicated Discharged on Evidence-Based Beta Blockers: No, document contraindications Reason(s) not discharged on Evidence-Based Beta Blockers: Other Beta Marcos Reason - Other: Not indicated Discharged on ARNI?: No-Document Contraindications Reason(s) not discharged on ARNI: Other ARNI Reason - Other: Not indicated Discharged on ARB?: No-document contraindications Reason(s) not Discharged on ARB: Other ARB Reason - Other: Not indicated Discharged on ACEI?: N/A Discharged on ARNI ACEI Reason - Other: Not indicated For LVEF <35%, discharged on Aldosterone Antagonist?: No-document contraincations Reason(s) not discharged on Aldosterone Antagonist: Other Aldosterone Antagonist Reason - Other: Not indicated
--- NOTE | 2020-05-07 20:22 | EKG REPORT ---
SEVERITY:- BORDERLINE ECG - SINUS RHYTHM BORDERLINE T ABNORMALITIES, LATERAL LEADS BORDERLINE PROLONGED QT INTERVAL : Confirmed by: Valencia Reynolds 07-May-2020 20:21:55
== END 2020-05-07 14:55 | disposition home or self-care (01) | DRG 208 ==
LOC: ER 03:22 → EH 05:17 → ICU 08:24 → 4S 05-06 18:17
PROVIDERS: ADMIT Anesthesiology; ATTEND Internal Medicine
PROC: 5A1935Z Respiratory Ventilation, Less than 24 Consecutive Hours (ICD-10-PCS; principal; 2020-05-05)
DX: J96.01 Acute respiratory failure with hypoxia (principal); J18.9 Pneumonia, unspecified organism; J45.901 Unspecified asthma with (acute) exacerbation; E87.6 Hypokalemia; I10 Essential (primary) hypertension; E78.5 Hyperlipidemia, unspecified; Z20.828 Contact with and (suspected) exposure to other viral communicable diseases; Z96.649 Presence of unspecified artificial hip joint; Z85.528 Personal history of other malignant neoplasm of kidney; Z79.891 Long term (current) use of opiate analgesic; Z79.51 Long term (current) use of inhaled steroids; Z79.899 Other long term (current) drug therapy
CPT/HCPCS: 36415; 36600; 71045; 80053; 81001; 82550; 82803; 83605; 83735; 83880; 84100; 84439; 84443; 84484; 85025; 85610; 87040; 87070; 87205; 87635; 93005; 93010; 94002; 94640; 96365; 96366; 99221; 99291; 99292; C9113; C9803; J0295; J0456; J0696; J1644; J2704; J2920; J3010; J3490; J7030; J7060; J7120; J7512

== ENCOUNTER 2020-08-01 08:56 | Day surgery (SDC) | payer MEDICARE, BC ==
[~2020-08-01 08:56] MED LIST: BUPIVACAINE HCL 0.75% INJ/PF (7.5 MG/1 ML) 10 ML SDV OD PRN; CHONDR SU A NA/HYALUR INTRAOC KIT (SURGICARE) ONE; EPINEPHRINE INJ/PF 1 MG/1 ML AMPULE ONE; KETOROLAC TROMETHAMINE 0.45% 4 DROP/0.4 ML DROPERETTE OD PRN; LIDOCAINE 1% INJ-PF (10 MG/ML) 30 ML SDV ONE; LIDOCAINE 4% INJ/PF (40 MG/ML) 5 ML AMPUL OD PRN
[2020-08-01] MEDS: TROPICAMIDE 1% OPH SOLN 15 ML OD PRN ×3 (09:13→09:34)
[2020-08-01] MEDS: TETRACAINE HCL 0.5% OPH SOLN 4 ML OD PRN ×3 (09:13→09:44)
[2020-08-01] MEDS: CYCLOPENTOLATE 0.2%/PHENYLEPHRINE 1% OPH SOLN 2 ML OD PRN ×3 (09:14→09:34)
[2020-08-01] MEDS: BESIFLOXACIN HCL 0.6% OPH SUSP 5 ML BOTTLE OD PRN ×4 (09:14→10:18)
[2020-08-01] MEDS ORDERED: FENTANYL CITRATE INJ/PF 100 MCG/2 ML AMPUL ONE (09:51)
[2020-08-01] MEDS ORDERED: MIDAZOLAM 2 MG/2 ML INJ ONE (09:51)
[2020-08-01] MEDS: DORZOLAMIDE HCL 2%/TIMOLOL MALEAT 0.5% OPH SOLN 10 ML OD PRN ×2 (10:18)
[2020-08-01] MEDS: PREDNISOLONE ACETATE 1% OPH SUSP 5 ML OD PRN ×2 (10:18)
--- NOTE | 2020-08-01 11:47 | Operative Report ---
Operative Report-[facility] Operative Report: DATE OF SURGERY: 08/01/2020 PREOPERATIVE DIAGNOSIS: CATARACT, RIGHT EYE. POSTOPERATIVE DIAGNOSIS: CATARACT,RIGHT EYE. PROCEDURE PERFORMED: PHACOEMULSIFICATION WITH TORIC POSTERIOR CHAMBER INTRAOCULAR LENS, RIGHT EYE. Intraocular Lens Model : SN6AT5 19.0 Total Phaco Time: 5 CDE SURGEON: ANNABEL PRIDE MD ANESTHESIA: TOPICAL WITH MAC. INDICATIONS FOR SURGERY: Difficulty with night driving PROCEDURE: The patient was brought to the Operating Room and placed in a seated position. a lid speculum was placed in the eye. the 0.180, and 270 degree axis of the cornea was marked with a toric marker. the patien was place in a reclining position. Following tetracaine drops, topical anesthesia was administered. This consisted of instrument wipe pledgets soaked in a solution of 4% Xylocaine mixed with 0.75% Marcaine in a 1:2 ratio. A 2 x 1 cm pledget was placed in the superior fornix. A 1 x 1 cm pledget was placed in the inferior fornix. The eye was patched shut for 5 minutes. The patch was removed. The eye was sterilely prepped and draped in the usual manner. Lid speculum was placed in the eye. The pledgets were removed. 4-0 black silk sutures were placed around the superior and the inferior rectus muscles to be used as traction. A conjunctival peritomy was made at the 10 o'clock position. Hemostasis was obtained with bipolar cautery. A posterior limbal groove was created using a crescent knife and dissected anteriorly towards the cornea. A sharp point blade was used to create a paracentesis site at the 2 o'clock position. 0.2 cc non preserved Lidocaine was injected into the anterior chamber. A 2.4 mm keratome was used to enter the anterior chamber through the groove. Viscoelastic was injected into the anteriorchamber. An anterior capsulotomy was performed using Utrata forceps in acapsulorrhexis fashion. Hydrodissection and hydrodelineation were performed. Phacoemulsification was performed in [id number] technique. Following this, the I/A unit was used to remove residual cortex. Viscoelastic was injected into the capsular bag. The Intraocular lens was placed in the capsular bag. The 98 degree axis of the eye was marked using a toric marker and the previously marked sites as reference. The lens was centered at this axis. The I/A unit was used to remove residual viscoelastic. The wound was seen to be watertight under high and low pressure, and no sutures were placed. The intraocular lens was well centered. The pressure was adjusted in the eye to normal pressure. The 4-0 black silk sutures and lid speculum were removed. The eye was shielded after Besivance and Cosopt drops were placed. The patient tolerated the procedure well and was sent to the Recovery Room in good condition.
== END 2020-08-01 10:50 | disposition home or self-care (01) ==
LOC: SC 08:56
PROVIDERS: ATTEND Ophthalmology
DX: H25.811 Combined forms of age-related cataract, right eye (principal); H04.123 Dry eye syndrome of bilateral lacrimal glands; H02.423 Myogenic ptosis of bilateral eyelids; J44.9 Chronic obstructive pulmonary disease, unspecified; I10 Essential (primary) hypertension; E66.9 Obesity, unspecified; E78.00 Pure hypercholesterolemia, unspecified; M19.90 Unspecified osteoarthritis, unspecified site; Z79.82 Long term (current) use of aspirin
CPT/HCPCS: 66984; V2787; J2250; J3490 ×5; A9270; J0171; J3010; 142

== ENCOUNTER → 2020-08-15 | Outpatient (CLI) | payer MEDICARE, BC ==
--- NOTE | 2020-08-15 13:47 | RADIOLOGY REPORT (SQ) ---
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 TECHNIQUE: Multiplanar multisequence imaging performed without and with contrast including sagittal, axial and coronal T2, axial T1, axial gradient fat sat T1, axial, sagittal and coronal fat sat T1 po st contrast. CONTRAST TYPE AND DOSE: 20 mL Prohance. RENAL FUNCTION: Not indicated. ACR Type II contrast agent associated with few, if any, unconfounded cases of NSF LIMITATIONS: Motion artifact. Temporary power outage following contrast injection. FINDINGS: LIVER: Normal size. No masses. No dilated ducts. CBD normal. SPLEEN: Normal size. No focal lesions. PANCREAS: No masses. No adjacent inflammation or peripancreatic fluid collections. Pancreatic duct no t dilated. GALLBLADDER: No masses. No stones. No gallbladder wall thickening or pericholecystic fluid. ADRENAL GLANDS: No significant masses or asymmetry. RIGHT KIDNEY AND URETER: Stable mostly solid mass medial aspect midpole series 4, image 25 measuring 15 x 18 x 23 mm AP by transverse by craniocaudal diameter. Small cystic component series 4, image 24 . LEFT KIDNEY AND URETER: No masses. No hydronephrosis. AORTA AND VESSELS: No aneurysm. RETROPERITONEUM: No retroperitoneal adenopathy, hemorrhage or masses. BOWEL: No visualized masses. No inflammation. No significant dilatation. ABDOMINAL WALL AND PERITONEUM: Hiatal hernia. BONES: No acute or significant findings. OTHER: No other significant finding. IMPRESSION: Stable solid mass right kidney. TECHNICAL DOCUMENTATION: JOB ID: [id number] 2010 [employer]- All Rights Reserved Reading location - IP/workstation name: [email or web address]
== END ==
LOC: RAD 10:23
PROVIDERS: ATTEND Urology
DX: N28.89 Other specified disorders of kidney and ureter (principal)
CPT/HCPCS: 82565; 74183; A9576

== ENCOUNTER 2020-08-22 10:17 | Day surgery (SDC) | payer MEDICARE, BC ==
[~2020-08-22 10:17] MED LIST changes: +BESIFLOXACIN HCL 0.6% OPH SUSP 5 ML BOTTLE OS PRN; -BUPIVACAINE HCL 0.75% INJ/PF (7.5 MG/1 ML) 10 ML SDV OD PRN; +BUPIVACAINE HCL 0.75% INJ/PF (7.5 MG/1 ML) 10 ML SDV OS PRN; +CYCLOPENTOLATE 0.2%/PHENYLEPHRINE 1% OPH SOLN 2 ML OS PRN; +DORZOLAMIDE HCL 2%/TIMOLOL MALEAT 0.5% OPH SOLN 10 ML OS PRN; -KETOROLAC TROMETHAMINE 0.45% 4 DROP/0.4 ML DROPERETTE OD PRN; +KETOROLAC TROMETHAMINE 0.45% 4 DROP/0.4 ML DROPERETTE OS PRN; -LIDOCAINE 4% INJ/PF (40 MG/ML) 5 ML AMPUL OD PRN; +LIDOCAINE 4% INJ/PF (40 MG/ML) 5 ML AMPUL OS PRN; +PREDNISOLONE ACETATE 1% OPH SUSP 5 ML OS PRN; +TETRACAINE HCL 0.5% OPH SOLN 4 ML OS PRN; +TROPICAMIDE 1% OPH SOLN 15 ML OS PRN
[2020-08-22] MEDS ORDERED: ONDANSETRON HCL INJ/PF 4 MG/2 ML SDV ONE (10:54)
[2020-08-22] MEDS ORDERED: MIDAZOLAM 2 MG/2 ML INJ ONE (10:55)
[2020-08-22] MEDS ORDERED: FENTANYL CITRATE INJ/PF 100 MCG/2 ML AMPUL ONE (10:55)
== END 2020-08-22 11:20 | disposition home or self-care (01) ==
LOC: SC 10:17
PROVIDERS: ATTEND Ophthalmology
DX: Z53.9 Procedure and treatment not carried out, unspecified reason (principal)
CPT/HCPCS: J0171; J2250; J2405; J3010; J3490

== ENCOUNTER 2020-10-03 08:31 | Day surgery (SDC) | payer MEDICARE, BC ==
[~2020-10-03 08:31] MED LIST changes: -BESIFLOXACIN HCL 0.6% OPH SUSP 5 ML BOTTLE OS PRN; -CYCLOPENTOLATE 0.2%/PHENYLEPHRINE 1% OPH SOLN 2 ML OS PRN; -DORZOLAMIDE HCL 2%/TIMOLOL MALEAT 0.5% OPH SOLN 10 ML OS PRN; -LIDOCAINE 1% INJ-PF (10 MG/ML) 30 ML SDV ONE; +LIDOCAINE 1%/PHENYLEPHRINE 1.5% 1 ML VIAL ONE; +MIDAZOLAM 2 MG/2 ML INJ ONE; -PREDNISOLONE ACETATE 1% OPH SUSP 5 ML OS PRN; -TETRACAINE HCL 0.5% OPH SOLN 4 ML OS PRN; -TROPICAMIDE 1% OPH SOLN 15 ML OS PRN
[2020-10-03] MEDS: TROPICAMIDE 1% OPH SOLN 15 ML OS PRN ×3 (09:06→09:26)
[2020-10-03] MEDS: CYCLOPENTOLATE 0.2%/PHENYLEPHRINE 1% OPH SOLN 2 ML OS PRN ×3 (09:06→09:26)
[2020-10-03] MEDS: BESIFLOXACIN HCL 0.6% OPH SUSP 5 ML BOTTLE OS PRN ×4 (09:06→10:21)
[2020-10-03] MEDS: TETRACAINE HCL 0.5% OPH SOLN 4 ML OS PRN ×3 (09:07→09:50)
[2020-10-03] MEDS: DORZOLAMIDE HCL 2%/TIMOLOL MALEAT 0.5% OPH SOLN 10 ML OS PRN ×2 (10:21)
[2020-10-03] MEDS: PREDNISOLONE ACETATE 1% OPH SUSP 5 ML OS PRN ×2 (10:21)
--- NOTE | 2020-10-03 12:45 | Operative Report ---
Operative Report-[facility] Operative Report: DATE OF SURGERY: 10/03/2020 PREOPERATIVE DIAGNOSIS: CATARACT, LEFT EYE. POSTOPERATIVE DIAGNOSIS: CATARACT, LEFT EYE. PROCEDURE PERFORMED: PHACOEMULSIFICATION WITH TORIC POSTERIOR CHAMBER INTRAOCULAR LENS, LEFT EYE. Intraocular Lens Model : SN6AT5 19.5 Total Phaco Time: 8.07 CDE SURGEON: ANNABEL PRIDE MD ANESTHESIA: TOPICAL WITH MAC. INDICATIONS FOR SURGERY: Difficulty with night driving PROCEDURE: The patient was brought to the Operating Room and placed in a seated position. a lid speculum was placed in the eye. the 0.180, and 270 degree axis of the cornea was marked with a toric marker. the patien was place in a reclining position. Following tetracaine drops, topical anesthesia was administered. This consisted of instrument wipe pledgets soaked in a solution of 4% Xylocaine mixed with 0.75% Marcaine in a 1:2 ratio. A 2 x 1 cm pledget was placed in the superior fornix. A 1 x 1 cm pledget was placed in the inferior fornix. The eye was patched shut for 5 minutes. The patch was removed. The eye was sterilely prepped and draped in the usual manner. Lid speculum was placed in the eye. The pledgets were removed. 4-0 black silk sutures were placed around the superior and the inferior rectus muscles to be used as traction. A conjunctival peritomy was made at the 10 o'clock position. Hemostasis was obtained with bipolar cautery. A posterior limbal groove was created using a crescent knife and dissected anteriorly towards the cornea. A sharp point blade was used to create a paracentesis site at the 2 o'clock position. 0.2 cc non preserved Lidocaine was injected into the anterior chamber. A 2.4 mm keratome was used to enter the anterior chamber through the groove. Viscoelastic was injected into the anteriorchamber. An anterior capsulotomy was performed using Utrata forceps in acapsulorrhexis fashion. Hydrodissection and hydrodelineation were performed. Phacoemulsification was performed in [id number] technique. Following this, the I/A unit was used to remove residual cortex. Viscoelastic was injected into the capsular bag. The Intraocular lens was placed in the capsu lar bag. The 70 degree axis of the eye was marked using a toric marker and the previously marked sites as reference. The lens was centered at this axis. The I/A unit was used to remove residual viscoelastic. The wound was seen to be watertight under high and low pressure, and no sutures were placed. The intraocular lens was well centered. The pressure was adjusted in the eye to normal pressure. The 4-0 black silk sutures and lid speculum were removed. The eye was shielded after Besivance and Cosopt drops were placed. The patient tolerated the procedure well and was sent to the Recovery Room in good condition.
== END 2020-10-03 09:54 | disposition home or self-care (01) ==
LOC: SC 08:31
PROVIDERS: ATTEND Ophthalmology
DX: H25.812 Combined forms of age-related cataract, left eye (principal); Z96.1 Presence of intraocular lens; H02.423 Myogenic ptosis of bilateral eyelids; Z79.82 Long term (current) use of aspirin; E78.00 Pure hypercholesterolemia, unspecified; I10 Essential (primary) hypertension; M19.90 Unspecified osteoarthritis, unspecified site; J44.9 Chronic obstructive pulmonary disease, unspecified; Z79.51 Long term (current) use of inhaled steroids; E66.9 Obesity, unspecified
CPT/HCPCS: 66984; V2787; J2250; J3490 ×4; A9270; J0171